=== PATIENT | female | born 1955 | race Caucasian/White ===

== ENCOUNTER → 2016-12-02 | Outpatient (CLI) | payer OTHER ==
[2016-12-02 09:14] LABS: MEAN CORPUSCULAR HEMOGLOBIN 30.1 pg (27.0-33.0); MEAN CORPUSCULAR HGB CONC 33.7 g/dl (32.0-36.5); MEAN CORPUSCULAR VOLUME 89.4 fl (80.0-96.0); RED CELL DISTRIBUTION WIDTH 12.5 % (11.5-14.5); WHITE BLOOD COUNT 5.6 K/mm3 (4.0-10.0)
[2016-12-02 09:52] LABS: ALBUMIN 3.8 GM/DL (3.2-5.2); ALBUMIN/GLOBULIN RATIO 1.12 (1.00-1.93); ALKALINE PHOSPHATASE 120 U/L (45-117); ALT/SGPT 39 U/L (12-78); ANION GAP 9 MEQ/L (8-16); AST/SGOT 26 U/L (15-37); BILIRUBIN,TOTAL 0.5 MG/DL (0.2-1.0); BLOOD UREA NITROGEN 12 MG/DL (7-18); CALCIUM LEVEL 8.8 MG/DL (8.8-10.2); CARBON DIOXIDE LEVEL 27 MEQ/L (21-32); CHLORIDE LEVEL 107 MEQ/L (98-107); CHOLESTEROL LEVEL 231 MG/DL (<200); CREATININE FOR GFR 0.99 MG/DL (0.55-1.02); GLOMERULAR FILTRATION RATE > 60.0 (>45); GLUCOSE, FASTING 90 MG/DL (80-110); POTASSIUM SERUM 4.4 MEQ/L (3.5-5.1); SODIUM LEVEL 143 MEQ/L (136-145); TOTAL PROTEIN 7.2 GM/DL (6.4-8.2); TRIGLYCERIDES LEVEL 183 MG/DL (<150)
== END ==
LOC: M WUC 08:24
PROVIDERS: ATTEND Family Medicine
DX: I10 Essential (primary) hypertension (principal); E03.9 Hypothyroidism, unspecified

== ENCOUNTER → 2017-03-14 | Outpatient (CLI) | payer OTHER ==
[~2017-03-14] MED LIST: LEVO88TA3 PO; PENT10CA PO; RANI150T PO; ZOLO50TA PO
[2017-03-14 11:20] LABS: MEAN CORPUSCULAR HEMOGLOBIN 30.4 pg (27.0-33.0); MEAN CORPUSCULAR HGB CONC 33.6 g/dl (32.0-36.5); MEAN CORPUSCULAR VOLUME 90.6 fl (80.0-96.0); RED CELL DISTRIBUTION WIDTH 12.9 % (11.5-14.5); WHITE BLOOD COUNT 6.6 K/mm3 (4.0-10.0)
[2017-03-14 12:11] LABS: ALBUMIN 3.8 GM/DL (3.2-5.2); ALBUMIN/GLOBULIN RATIO 1.09 (1.00-1.93); ALKALINE PHOSPHATASE 119 U/L (45-117); ALT/SGPT 31 U/L (12-78); ANION GAP 7 MEQ/L (8-16); AST/SGOT 20 U/L (15-37); BILIRUBIN,TOTAL 0.5 MG/DL (0.2-1.0); BLOOD UREA NITROGEN 16 MG/DL (7-18); CALCIUM LEVEL 8.8 MG/DL (8.8-10.2); CARBON DIOXIDE LEVEL 28 MEQ/L (21-32); CHLORIDE LEVEL 104 MEQ/L (98-107); CHOLESTEROL LEVEL 248 MG/DL (<200); CREATININE FOR GFR 0.88 MG/DL (0.55-1.02); GLOMERULAR FILTRATION RATE > 60.0 (>45); GLUCOSE, FASTING 84 MG/DL (80-110); POTASSIUM SERUM 4.5 MEQ/L (3.5-5.1); SODIUM LEVEL 139 MEQ/L (136-145); TOTAL PROTEIN 7.3 GM/DL (6.4-8.2); TRIGLYCERIDES LEVEL 174 MG/DL (<150)
[2017-03-14 12:20] LABS: INR 1.09
--- NOTE | 2017-03-14 20:18 | ECGEPIP ---
Stationary ECG Study [facility] Test Date: 2017-03-14 Pat Name: MELLY VALADEZ Department: Room: - Gender: F [employer]ast Concrete Ironworker: DARÍO : 1955 Requested By: Uriel Benson Order Number: [id number] Reading MD: Sivakumar Daniels Measurements Intervals [place] Rate: 61 P: 31 [place]: 180 QRS: 11 QRSD: 93 T: 29 QT: 422 QTc: 426 Interpretive Statements SINUS RHYTHM NO PRIOR Electronically Signed On 03-14-2017 20:18:29 EDT by Sivakumar Daniels
--- NOTE | 2017-03-15 01:54 | REP ---
Clinical: Preoperative testing. Technique: PA and lateral. Comparison: 01/01/2013. Findings: Subtle bibasilar atelectasis/infiltrates cannot be excluded and require correlation with physical examination and auscultation. No effusion. No pneumothorax. Mediastinum and cardiac silhouette are stable. Skeletal structures are intact. Airway is patent and midline. Impression: Cannot exclude bibasilar atelectasis/subtle infiltrate. Signed by Sae Jarquin MD 03/15/2017 01:46 A
== END ==
LOC: M LAB 10:27
PROVIDERS: ATTEND Family Medicine
DX: Z01.818 Encounter for other preprocedural examination (principal); E03.9 Hypothyroidism, unspecified

== ENCOUNTER → 2017-03-23 | Outpatient (CLI) | payer OTHER ==
--- NOTE | 2017-03-23 11:10 | REP ---
Clinical: Follow up pneumonia . Comparison: 03/14/2017 . Technique: PA and lateral. Findings: The mediastinum and cardiac silhouette are normal. The lung long are clear and without acute consolidation, effusion, or pneumothorax. Previously identified bibasilar infiltrates have resolved. The skeletal structures are intact and normal. Impression: 1. No acute cardiopulmonary process. 2. Previously noted bibasilar infiltrates have resolved. Signed by Sae Jarquin MD 03/23/2017 11:01 A
== END ==
LOC: M RAD 10:25
PROVIDERS: ATTEND Family Medicine
DX: J18.9 Pneumonia, unspecified organism (principal)

== ENCOUNTER 2017-05-17 10:10 | Inpatient (IN) | payer OTHER ==
--- NOTE | 2017-05-16 16:55 | HPE ---
DATE OF ADMISSION: 05/17/2017 CHIEF COMPLAINT: Cecal polyps. BRIEF HISTORY OF PRESENT ILLNESS: The patient is a 61-year-old female who presents for a family history of colon cancer. Her sister was diagnosed with rectal cancer. She had originally some urgency with bowel movements and had occasional bleeding from hemorrhoids, and thus a followup colonoscopy was performed. During that time, followup colonoscopy revealed a relative carpet of polyps within the cecum and she was referred on to [facility] for possible treatment of these colonic polyps. The patient had adenomatous polyps diagnosed on that area. PAST MEDICAL HISTORY: Her past medical history is significant for: 1. History of chronic rhinitis. 2. History of chronic cough. 3. History of (C) section and tubal ligation. 4. History of anxiety. 5. History of depression. 6. History of hepatitis. 7. History of hypothyroidism. 8. History of obesity. 9. History of interstitial cystitis. 10. History of tubal ligation. MEDICATIONS: Include: - Elmiron 100 mg two by mouth three times a day - Synthroid - ranitidine - sertraline PHYSICAL EXAMINATION: Reveals a 61-year-old female who looks stated. HEENT: Reveals an atraumatic, normocephalic head with extraocular movements intact. Pupils are equal and reactive to light. Sclerae nonicteric. Oropharynx clear without exudate or lesions. NECK: Supple without adenopathy. LUNGS: Clear to auscultation without crackles, wheezes or rhonchi. HEART: Regular without murmur. ABDOMEN: Soft, nontender, nondistended. No hepatosplenomegaly is appreciated. EXTREMITIES: Warm and well-perfused. IMPRESSION AND PLAN: The patient has an unresected polyp (adenomatous) of the cecum with recommendations to proceed with a right hemicolectomy. The risks as well as benefits have been discussed with her at length, those including but not limited to infection, bleeding, damage to surrounding structures including bowel, bladder, nerves, vessels, kidney, ureter, duodenum, liver, and the plan is for a laparoscopic approach. She will be given a mechanical as well as antibiotic bowel preparation and given IV antibiotics preoperatively. She will receive a Parkinson catheter perioperatively and plan on hospitalization/admission. She understands the risks as above and they do include possible open operative intervention as well as possible colostomy placement. She would like to proceed with this as scheduled on 05/17/2017.
[~2017-05-17] VITALS: Ht 172.7 cm; Wt 92.3 kg
[2017-05-17] VITALS (7 sets, daily range): BP systolic 111–130; BP diastolic 58–68; O2SAT 96
[2017-05-17] MEDS ORDERED: LR 1,000 ML IV ONE (10:30)
[2017-05-17] MEDS ORDERED: ERTAPENEM SODIUM 1 GM in NS MINI-BAG PLUS 50 ML IV ONE (11:00)
[2017-05-17] MEDS ORDERED: BUPIVACAINE/EPIN 0.25% 30 ML VIAL As Ordered ONE (12:10)
[2017-05-17] MEDS ORDERED: GLUCAGON FOR INJ 1 MG VIAL (J1610) As Ordered ONE (12:11)
[2017-05-17] MEDS ORDERED: BUPIVACAINE LIPOSOME/PF 1.3% 20 ML VIAL (13.3MG/ML)(EXPAREL) As Ordered ONE (12:11)
[2017-05-17] MEDS ORDERED: BUPIVACAINE HCL 0.25% 30 ML VIAL As Ordered ONE (12:11)
[2017-05-17] MEDS ORDERED: fentaNYL 250 MCG/5 ML INJECTION (J3010) As Ordered ONE (13:20)
[2017-05-17] MEDS ORDERED: MIDAZOLAM INJ 2 MG/2 ML VIAL (J2250) As Ordered ONE (13:20)
[2017-05-17] MEDS ORDERED: HYDROmorphone HCL 2 MG/ML 1ML VIAL (J1170) As Ordered ONE (13:21)
[2017-05-17] MEDS ORDERED: ROCURONIUM BROMIDE 50 MG/5 ML VIAL/SYRINGE As Ordered ONE (13:22)
[2017-05-17] MEDS ORDERED: GLYCOPYRROLATE INJ 0.2 MG/ML 2 ML VIAL As Ordered ONE (13:23)
[2017-05-17] MEDS ORDERED: LIDOCAINE 2% INJ 100 MG/5 ML SDV (FOR ANES.) As Ordered ONE (13:23)
[2017-05-17] MEDS ORDERED: ONDANSETRON 4MG/2ML VIAL (J2405) As Ordered ONE (13:23)
[2017-05-17] MEDS ORDERED: METOCLOPRAMIDE INJ 10MG/2ML VIAL (J2765) As Ordered ONE (13:23)
[2017-05-17] MEDS ORDERED: PROPOFOL 200 MG/20 ML VIAL As Ordered ONE (13:23)
[2017-05-17] MEDS ORDERED: NEOSTIGMINE 1MG/ML 5 ML SYRINGE (J2710) As Ordered ONE (13:23)
[2017-05-17] MEDS ORDERED: DESFLURANE 240 ML INHALANT As Ordered ONE (13:29)
[2017-05-17] MEDS ORDERED: KETOROLAC 60 MG/2 ML VIAL (J1885) As Ordered ONE (14:13)
[2017-05-17] MEDS ORDERED: NS 1,000 ML IV SCH (14:39)
[2017-05-17] MEDS: LR 1,000 ML IV SCH ×3 (14:39→22:39)
[2017-05-17] MEDS ORDERED: NALBUPHINE HCL 10 MG/ML AMP (J2300) IV PRN (14:45)
[2017-05-17] MEDS ORDERED: METOCLOPRAMIDE INJ 10MG/2ML VIAL (J2765) IV PRN ×2 (14:45→15:15)
[2017-05-17] MEDS ORDERED: EPIDURAL/PCA KEYS XX PRN (14:45)
[2017-05-17] MEDS ORDERED: NALOXONE INJ 0.4 MG/1 ML VIAL (J2310) IV PRN (14:45)
[2017-05-17] MEDS ORDERED: diphenhydrAMINE INJ 50MG/ML VIAL (J1200) IV PRN (14:45)
[2017-05-17] MEDS ORDERED: MORPHINE 1MG/ML IN 0.9% NACL 100ML IV BAG IV PRN (14:45)
[2017-05-17] MEDS ORDERED: IPRATROPIUM 0.5MG/ALBUTEROL 2.5MG INH SOL UD 3ML (DUONEB)(J7620) NEB PRN (14:45)
[2017-05-17] MEDS ORDERED: ONDANSETRON 4MG/2ML VIAL (J2405) IV PRN ×3 (14:45→15:15)
[2017-05-17] MEDS ORDERED: PROMETHAZINE INJ 25 MG/ML VIAL (J2550) IV PRN (14:45)
[2017-05-17] MEDS ORDERED: fentaNYL 100 MCG/2 ML INJECTION (J3010) As Ordered ONE (15:01)
[2017-05-17] MEDS: fentaNYL 100 MCG/2 ML INJECTION (J3010) IV SCH ×4 (15:02→15:20)
[2017-05-17] MEDS ORDERED: fentaNYL 100 MCG/2 ML INJECTION (J3010) IV PRN (15:15)
[2017-05-17] MEDS ORDERED: PERCOCET 5MG/325MG TAB PO PRN (15:15)
[2017-05-17] MEDS ORDERED: HYDROmorphone HCL 1 MG/ML SYRINGE (J1170) IV PRN (15:15)
[2017-05-17] MEDS ORDERED: LR 1,000 ML IV SCH (15:15)
[2017-05-17] MEDS: PENTOSAN POLYSULFATE SODIUM 100 MG CAP (ELMIRON) PO SCH (20:43)
[2017-05-17] MEDS: IPRATROPIUM 0.5MG/ALBUTEROL 2.5MG INH SOL UD 3ML (DUONEB)(J7620) NEB SCH (21:12)
[2017-05-18] VITALS (7 sets, daily range): BP systolic 98–131; BP diastolic 50–79; O2SAT 96
[2017-05-18] MEDS: IPRATROPIUM 0.5MG/ALBUTEROL 2.5MG INH SOL UD 3ML (DUONEB)(J7620) NEB SCH ×4 (02:00→20:10)
[2017-05-18] MEDS: LEVOTHYROXINE 88MCG TABLET (0.088 MG) PO SCH (05:27)
[2017-05-18] MEDS: LR 1,000 ML IV SCH ×2 (06:39→07:13)
[2017-05-18 07:20] LABS: MEAN CORPUSCULAR HEMOGLOBIN 30.7 pg (27.0-33.0); MEAN CORPUSCULAR HGB CONC 32.4 g/dl (32.0-36.5); RED CELL DISTRIBUTION WIDTH 13.5 % (11.5-14.5); WHITE BLOOD COUNT 8.2 K/mm3 (4.0-10.0)
[2017-05-18 07:43] LABS: ANION GAP 4 MEQ/L (8-16); BLOOD UREA NITROGEN 11 MG/DL (7-18); CALCIUM LEVEL 8.2 MG/DL (8.8-10.2); CARBON DIOXIDE LEVEL 29 MEQ/L (21-32); CHLORIDE LEVEL 105 MEQ/L (98-107); CREATININE FOR GFR 0.91 MG/DL (0.55-1.02); GLOMERULAR FILTRATION RATE > 60.0 (>45); GLUCOSE, FASTING 90 MG/DL (80-110); POTASSIUM SERUM 4.2 MEQ/L (3.5-5.1); SODIUM LEVEL 138 MEQ/L (136-145)
[2017-05-18] MEDS: SERTRALINE HCL 50 MG TAB PO SCH (09:00)
[2017-05-18] MEDS: PANTOPRAZOLE 40MG INJ (PROTONIX) (C9113) IV SCH (09:00)
[2017-05-18] MEDS: PENTOSAN POLYSULFATE SODIUM 100 MG CAP (ELMIRON) PO SCH ×3 (09:01→21:28)
[2017-05-18] MEDS: KETOROLAC 30 MG/ML VIAL (J1885) IV PRN ×3 (10:40→23:11)
[2017-05-18] MEDS ORDERED: ERTAPENEM SODIUM 1 GM in NS MINI-BAG PLUS 50 ML IV ONE (12:00)
--- NOTE | 2017-05-18 18:30 | RO ---
DATE OF PROCEDURE: 05/17/2017 PREOPERATIVE DIAGNOSIS: Cecal polyp. POSTOPERATIVE DIAGNOSIS: Cecal polyp. PROCEDURE: Laparoscopic right colectomy. SURGEON: Dr. Barrett Morris HIV/AIDS CARE NURSE: Dr. Wyatt. Dr. Wyatt assisted with retraction, exposure and assistance with the anastomosis. ESTIMATED BLOOD LOSS: Minimal. FLUIDS: Crystalloid. BRIEF PROCEDURE SUMMARY: The patient was brought to the operating room was given general anesthesia. After adequate anesthesia and preoperative antibiotics were given the patient was prepped and draped in the usual sterile fashion. Next, the supraumbilical incision was made with skin knife. Blunt dissection was carried down to fascia. Fascia was grasped with David clamps, elevated and a Veress needle placed into the abdominal cavity insufflated to 15 mm pressure. A dilating 10 mm trocar was placed at this time and under direct visualization a suprapubic and left lower quadrant 5 mm trocars were placed. Next, a epigastric 5 mm trocar was placed and the patient was placed in Trendelenburg left side down position. The cecum was seen, evaluated and the white line of Toldt was taken down with harmonic scalpel. This continued all across to where the mesentery was able to be mobilized off Gerota's and medially to the duodenum. This continued across the hepatic flexure and around the hepatic flexure where this was able to be mobilized off the duodenum and even pancreas was well visualized in this area. Once the vessels were identified quite nicely in this area, the colon was a additionally mobilized to see if this could be mobilized medially with some blunt dissection. It was easily performed in this area and then the mesentery of the small bowel that was adherent in the pelvic sidewall was taken down with harmonic scalpel as well. Once this fold of peritoneum was taken down I felt that the cecum could be delivered through the umbilicus without undue tension. A midline incision was created and the terminal ileum was transected with a JAIRO stapler. The hepatic flexure was transected with the JAIRO stapler and a [id number] anastomosis was created after the vessels were taken with echelon vascular load. The enterotomy then was closed with a JAIRO 75 blue load and the crotch of the anastomosis as well as the top portion of a anastomosis was reinforced with some interrupted 3-0 Vicryl. Next, this was returned to the abdominal cavity irrigated until clear and the midline was closed with a running 0 Vicryl. The midline incision was copiously irrigated until clear and then closed with megan. All incisions were closed with megan. Dry sterile dressing was applied. The patient was awakened, extubated, brought to the recovery room awake, alert, hemodynamically stable. Sponge, needle counts correct times two.
[2017-05-19] VITALS: BP_SYST 116; BP_SYST 136; BP_DIAS 55; BP_DIAS 62
[2017-05-19] MEDS: IPRATROPIUM 0.5MG/ALBUTEROL 2.5MG INH SOL UD 3ML (DUONEB)(J7620) NEB SCH ×4 (02:00→20:00)
[2017-05-19 04:00] VITALS: BP 119/74
[2017-05-19] MEDS: LEVOTHYROXINE 88MCG TABLET (0.088 MG) PO SCH (05:54)
[2017-05-19] MEDS: KETOROLAC 30 MG/ML VIAL (J1885) IV PRN ×3 (05:55→20:36)
[2017-05-19 07:06] LABS: MEAN CORPUSCULAR HEMOGLOBIN 30.1 pg (27.0-33.0); MEAN CORPUSCULAR HGB CONC 32.4 g/dl (32.0-36.5); MEAN CORPUSCULAR VOLUME 92.8 fl (80.0-96.0)
[2017-05-19 07:19] LABS: ANION GAP 5 MEQ/L (8-16); BLOOD UREA NITROGEN 8 MG/DL (7-18); CALCIUM LEVEL 8.4 MG/DL (8.8-10.2); CARBON DIOXIDE LEVEL 30 MEQ/L (21-32); CHLORIDE LEVEL 105 MEQ/L (98-107); CREATININE FOR GFR 0.78 MG/DL (0.55-1.02); GLOMERULAR FILTRATION RATE > 60.0 (>45); GLUCOSE, FASTING 95 MG/DL (80-110); POTASSIUM SERUM 3.9 MEQ/L (3.5-5.1); SODIUM LEVEL 140 MEQ/L (136-145)
[2017-05-19 08:00] VITALS: BP 125/58
[2017-05-19] MEDS: SERTRALINE HCL 50 MG TAB PO SCH (09:08)
[2017-05-19] MEDS: PENTOSAN POLYSULFATE SODIUM 100 MG CAP (ELMIRON) PO SCH ×3 (09:08→20:36)
[2017-05-19] MEDS ORDERED: NORCO, ANEXSIA 5/325MG TABLET (HYDROcodone/ACETAMINOPHEN) PO PRN (10:45)
[2017-05-19] MEDS: PANTOPRAZOLE 40MG INJ (PROTONIX) (C9113) IV SCH (11:06)
[2017-05-19 12:00] VITALS: BP 114/64
[2017-05-19 16:00] VITALS: BP 117/68
[2017-05-19 20:00] VITALS: BP 124/70
[2017-05-20] VITALS: BP 135/67
[2017-05-20] MEDS: IPRATROPIUM 0.5MG/ALBUTEROL 2.5MG INH SOL UD 3ML (DUONEB)(J7620) NEB SCH ×2 (02:00→07:40)
[2017-05-20 04:00] VITALS: BP 127/70
[2017-05-20] MEDS: LEVOTHYROXINE 88MCG TABLET (0.088 MG) PO SCH (06:50)
[2017-05-20 07:35] LABS: MEAN CORPUSCULAR HGB CONC 33.6 g/dl (32.0-36.5); MEAN CORPUSCULAR VOLUME 92.3 fl (80.0-96.0); RED CELL DISTRIBUTION WIDTH 12.9 % (11.5-14.5); WHITE BLOOD COUNT 7.4 K/mm3 (4.0-10.0)
[2017-05-20 07:58] LABS: ANION GAP 6 MEQ/L (8-16); BLOOD UREA NITROGEN 5 MG/DL (7-18); CALCIUM LEVEL 8.8 MG/DL (8.8-10.2); CARBON DIOXIDE LEVEL 30 MEQ/L (21-32); CHLORIDE LEVEL 105 MEQ/L (98-107); CREATININE FOR GFR 0.76 MG/DL (0.55-1.02); GLOMERULAR FILTRATION RATE > 60.0 (>45); GLUCOSE, FASTING 89 MG/DL (80-110); POTASSIUM SERUM 3.6 MEQ/L (3.5-5.1); SODIUM LEVEL 141 MEQ/L (136-145)
[2017-05-20 08:00] VITALS: BP 131/72
[2017-05-20] MEDS: PANTOPRAZOLE 40MG INJ (PROTONIX) (C9113) IV SCH (11:12)
[2017-05-20] MEDS: PENTOSAN POLYSULFATE SODIUM 100 MG CAP (ELMIRON) PO SCH (11:13)
[2017-05-20] MEDS: SERTRALINE HCL 50 MG TAB PO SCH (11:13)
[2017-05-20 12:00] VITALS: BP 111/75
--- NOTE | 2017-05-24 23:31 | DSES ---
DATE OF ADMISSION: 05/17/2017 DATE OF DISCHARGE: 05/20/2017 PRINCIPAL DIAGNOSIS: Cecal polyp. ASSOCIATED DIAGNOSES: History of depression. History of hepatitis. History of hypothyroidism. History of obesity. history of interstitial cystitis. History of tubal ligation. History of chronic rhinitis. History of chronic cough. History of section and tubal ligation. PROCEDURES PERFORMED: Right colectomy on 05/17/2017. BRIEF HISTORY OF PRESENT ILLNESS: The patient is a 61-year-old female who presents with a family history of colon cancer. Her sister was diagnosed with rectal cancer, and she underwent a colonoscopy for some urgency with bowel movements, some bleeding hemorrhoids and at the time of the colonoscopy, there were multiple polyps within the cecum. She was referred to [place] for treatment of this; however, the recommendation after repeat colonoscopy in [place] was to proceed with surgical resection. HOSPITAL COURSE SUMMARY: The patient underwent laparoscopic right colectomy. The patient did well postoperatively. She started to have gastrointestinal (GI) function relatively soon, was increasing her activity, was ambulating well and was started on a clear liquid diet, advanced to a regular diet prior to discharge. Eventually she was discharged to home on 05/20/2017, tolerating a regular diet with incisions which were clean, dry, healing without any erythema, drainage or discharge. She was discharged on her usual medications, which include Synthroid, Elmiron, ranitidine and Zoloft. She was to follow up next week for staple removal and in [address] Morris for reevaluation.
[2017-06-24] MEDS ORDERED: LEVA1TAB2 PO (18:57)
== END 2017-05-20 14:55 | disposition home or self-care (01) | DRG 331 ==
LOC: M OR 10:10 → M PED 16:17
PROVIDERS: ADMIT Surgery; ATTEND Surgery
PROC: 0DTJ4ZZ Resection of Appendix, Percutaneous Endoscopic Approach (ICD-10-PCS; 2017-05-17)
PROC: 0DTF4ZZ Resection of Right Large Intestine, Percutaneous Endoscopic Approach (ICD-10-PCS; principal; 2017-05-17 11:45)
DX: D12.0 Benign neoplasm of cecum (principal); Z98.51 Tubal ligation status; Z80.0 Family history of malignant neoplasm of digestive organs; E03.9 Hypothyroidism, unspecified; F41.9 Anxiety disorder, unspecified; F32.9 Major depressive disorder, single episode, unspecified; J31.0 Chronic rhinitis; Z79.899 Other long term (current) drug therapy

== ENCOUNTER → 2017-06-29 | Outpatient (CLI) | payer OTHER ==
[~2017-06-29] MED LIST changes: +GASTROGRAFIN SOLUTION 30ML (Q9963) As Ordered ONE; +ISOVUE-370 76% 100ML VIAL (Q9967) As Ordered ONE; +LEVA1TAB2 PO
--- NOTE | 2017-06-29 18:46 | REP ---
CT abdomen pelvis without and with IV contrast: With oral contrast: History: Periumbilical pain. Post bowel resection. Comparison CT study 01/13/2009. CT contrast dose: 100 ml of Isovue [address] findings: Preliminary scientific research associate view shows a dextroconvex curvature in the lumbar spine. The lung bases are clear. There is a small nodular opacity in the right middle lobe which is unchanged from the 2009 prior study. In addition, there is a noncalcified pulmonary nodule in the right lower lobe 4 mm in greatest diameter. This projects on image #9 of 39 in series 304 of today's study. This was not present previously. There is a geographic pattern of fatty infiltration seen in the liver with some areas of fat sparing. The gallbladder is unremarkable. No adrenal lesion is seen on either side. The spleen is unremarkable. No pancreatic abnormality is observed. Kidneys enhance symmetrically and are morphologically intact. There are surgical clips and some postoperative fibrosis adjacent to the right colon status post prior right colon resection. There is left colonic diverticulosis most pronounced in the sigmoid colon. There is no CT evidence of diverticulitis. No uterine or ovarian abnormality is seen. Urinary bladder is intact. No abdominal wall defect is seen. There is some postoperative fibrosis in the periumbilical region involving the anterior abdominal wall. No other abnormality is seen. Degenerative disc changes are noted at L5-S1 and to a lesser extent L3-4 and L4-5. Impression: 1. Fatty infiltration of the liver. 2. Postoperative changes at the right colon. 3. Postoperative fibrosis changes in the anterior abdominal wall in the periumbilical region. No other abnormality. Signed by Patel Tran MD 06/30/2017 08:53 A
== END ==
LOC: M RAD 13:52
PROVIDERS: ATTEND Surgery
DX: R10.9 Unspecified abdominal pain (principal)

== ENCOUNTER → 2017-12-20 | Outpatient (REF) | payer OTHER ==
[2017-12-20 19:06] LABS: BACTERIA, URINE SMALL AMOUNT; HYALINE CAST, URINE NONE SEEN /lpf (0-1); MICROSCOPIC EXAM PERFORMED; MUCUS, URINE SMALL AMOUNT (NEGATIVE); RBC, URINE 0-1 /hpf (0-3); SQUAMOUS EPITHELIAL CELL URINE SMALL AMOUNT /hpf (SMALL AMT); TRANSITIONAL EPI CELLS, URINE SMALL AMOUNT /hpf
== END ==
LOC: M SMT 17:00
DX: N30.10 Interstitial cystitis (chronic) without hematuria (principal)
CPT/HCPCS: 81015

== ENCOUNTER → 2018-01-19 | Outpatient (CLI) | payer OTHER | LOC: M RAD 12:10 | DX: N30.10 Interstitial cystitis (chronic) without hematuria (principal) ==

== ENCOUNTER → 2018-05-22 | Outpatient (CLI) | payer OTHER ==
[2018-05-22 09:48] LABS: HEMATOCRIT 44.2 % (36.0-47.0); HEMOGLOBIN 14.4 g/dl (12.0-15.5); MEAN CORPUSCULAR HEMOGLOBIN 29.4 pg (27.0-33.0); MEAN CORPUSCULAR HGB CONC 32.6 g/dl (32.0-36.5); MEAN CORPUSCULAR VOLUME 90.2 fl (80.0-96.0); PLATELET COUNT, AUTOMATED 284 10^3/uL (150-450); RED CELL DISTRIBUTION WIDTH 12.9 % (11.5-14.5); WHITE BLOOD COUNT 6.7 10^3/uL (4.0-10.0)
[2018-05-22 10:15] LABS: ALBUMIN 3.6 GM/DL (3.2-5.2); ALKALINE PHOSPHATASE 123 U/L (45-117); ALT/SGPT 41 U/L (12-78); ANION GAP 7 MEQ/L (8-16); AST/SGOT 24 U/L (7-37); BILIRUBIN,TOTAL 0.4 MG/DL (0.2-1.0); BLOOD UREA NITROGEN 18 MG/DL (7-18); CALCIUM LEVEL 8.8 MG/DL (8.8-10.2); CARBON DIOXIDE LEVEL 29 MEQ/L (21-32); CHLORIDE LEVEL 106 MEQ/L (98-107); CHOLESTEROL LEVEL 233 MG/DL (<200); CHOLESTEROL RISK RATIO 5.974 (<5); CREATININE FOR GFR 0.94 MG/DL (0.55-1.30); GLOMERULAR FILTRATION RATE > 60.0 (>45); GLUCOSE, FASTING 92 MG/DL (70-100); HDL CHOLESTEROL 39 MG/DL (>40); IRON (FE) 64 UG/DL (50-170); LDL CHOLESTEROL 133.8 MG/DL (<100); NON-HDL-C 194 MG/DL; POTASSIUM SERUM 4.6 MEQ/L (3.5-5.1); SODIUM LEVEL 142 MEQ/L (136-145); TOTAL IRON BINDING CAPACITY 337 UG/DL (250-450); TOTAL PROTEIN 7.2 GM/DL (6.4-8.2); TRIGLYCERIDES LEVEL 301 MG/DL (<150)
[2018-05-22 10:35] LABS: ESTIMATED AVERAGE GLUCOSE 123 MG/DL (60-110); HEMOGLOBIN A1c 5.9 %
== END ==
LOC: M LAB 09:06
DX: R53.83 Other fatigue (principal); I51.7 Cardiomegaly; E03.9 Hypothyroidism, unspecified; D64.9 Anemia, unspecified
CPT/HCPCS: 71046

== ENCOUNTER 2018-07-20 12:52 | Day surgery (SDC) | payer OTHER ==
[~2018-07-20 12:52] MED LIST changes: -GASTROGRAFIN SOLUTION 30ML (Q9963) As Ordered ONE; -ISOVUE-370 76% 100ML VIAL (Q9967) As Ordered ONE; -LEVA1TAB2 PO; -LEVO88TA3 PO; +LIDOCAINE 2% INJ 100 MG/5 ML SDV (FOR ANES.) As Ordered; -PENT10CA PO; +PROPOFOL 200 MG/20 ML VIAL As Ordered; -RANI150T PO; -ZOLO50TA PO
[2018-07-20] MEDS: NS 1,000 ML IV (13:00)
== END 2018-07-20 14:54 | disposition home or self-care (01) ==
LOC: M OPP 12:52
DX: Z12.11 Encounter for screening for malignant neoplasm of colon (principal); Z80.0 Family history of malignant neoplasm of digestive organs; Z86.010 Personal history of colon polyps; K57.30 Diverticulosis of large intestine without perforation or abscess without bleeding; E03.9 Hypothyroidism, unspecified; K21.9 Gastro-esophageal reflux disease without esophagitis; R12 Heartburn; Z86.19 Personal history of other infectious and parasitic diseases; F41.9 Anxiety disorder, unspecified; F32.9 Major depressive disorder, single episode, unspecified; N30.10 Interstitial cystitis (chronic) without hematuria; Z87.19 Personal history of other diseases of the digestive system; Z79.899 Other long term (current) drug therapy
CPT/HCPCS: 45378

== ENCOUNTER → 2018-11-25 | Outpatient (CLI) | payer OTHER ==
[~2018-11-25] MED LIST changes: +DEXI30CA2 PO; +LEVA1TAB2 PO; +LEVO88TA3 PO; -LIDOCAINE 2% INJ 100 MG/5 ML SDV (FOR ANES.) As Ordered; +PENT10CA PO; -PROPOFOL 200 MG/20 ML VIAL As Ordered; +RANI150T PO; +ZOLO50TA PO
--- NOTE | 2018-11-26 08:46 | REP ---
MRI RIGHT SHOULDER WITHOUT CONTRAST: 11/25/2018. Clinical history: Right shoulder pain, no rotator cuff tear, calcific tendonitis or other. Technique: Sagittal fat suppressed T2 with coronal T1 and fat suppressed T2 along with axial 3-D WATS gradient echo and fat suppressed T2. Comparison: X-ray 01/01/2013. Findings: AC joint shows fairly prominent spurs at the inferior aspect of the clavicle and acromion indenting musculotendinous junction rotator cuff is additional prominent spurring at the peripheral margin of the acromion and downward sloping acromion. There is small volume of subacromial bursal fluid and trace subdeltoid bursal fluid. There is extensive thickening of the supraspinatus tendon just past the peripheral acromial spur and marked abnormal T2 hyperintense signal throughout the course of that tendon appear to be some partial tears in the tendon cystic change extending into the infraspinatus tendon and muscle. The coracoclavicular and coracohumeral ligaments are intact. The sagittal images there is some abnormal signal at the insertional footprint of the posterior margin supraspinatus superior margin of the infraspinatus tendon on the greater tuberosity of the humeral head and some adjacent somewhat output bursal fluid. Biceps tendon is seated in its groove and the intra-articular course of the of that biceps shows some thickening of the tendon but no definite tear of the biceps or biceps labral anchor. There is no significant glenohumeral joint effusion. I cannot confirm any a labral tear. Some degenerative changes at the inferior margin of the glenohumeral joint. A few tiny subchondral cysts noted posteriorly in the greater tuberosity humeral head likely related to posterior impingement. The subscapularis shows some thickening increased signal near its insertion but no full-thickness tear, retraction and no atrophy of the muscle. The supraspinatus muscle. Infraspinatus and teres minor muscles also show no tear. There is no paralabral cyst. I see no fluid in the subcoracoid bursa. On the axial and coronal T2 as focal dark signal in the supraspinatus tendon region may reflect some calcific tendinopathy/tendonitis. Impression: 1. 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 There is significant abnormal thickening of the supraspinatus tendon with marked abnormal T2 signal with very poor tendon quality and some partial tears. I do not see a complete tear with retraction of the tendon. There may be some communication to the subdeltoid bursa from intrasubstance tears of partial-thickness. Some dark signal foci in the region of the supraspinatus tendon on the T2 and axial and sagittal images raise question of calcific tendinopathy/tendonitis. 2. Minor degenerative changes inferior aspect glenohumeral joint. No glenohumeral joint effusion or loose body. No definite labral tear. 3. Biceps tendon sits well in its groove. There is some mild thickening of the intra-articular course of the tendon but no definite tear and the biceps labral anchor intact. Subscapularis tendon with some thickening and tendinopathy but no tear and the muscle was intact. 4. Abnormal signal in the insertion of the posterior fibers of the supraspinatus and superior fibers of the infraspinatus over the greater tuberosity humeral head and some fluid infiltration of the tendon and musculotendinous junction. No muscle atrophy there. No avulsion or retraction of those tendons. 5. Coracoclavicular coracohumeral ligaments are intact. Electronically Signed by Johnathan Taylor MD 11/26/2018 09:58 A
--- NOTE | 2018-11-26 09:17 | REP ---
MRI CERVICAL SPINE WITHOUT CONTRAST: 11/25/2018. Clinical history: Neck pain, radiculopathy. Comparison: Shoulder x-ray 01/01/2013, CT neck soft tissue and bone windows 07/31/2008. Technique: Sagittal T1, T2 and STIR images with axial T1 and T2 sequences. Findings: Normal cervical lordosis slightly reduced as on prior CT. A few millimeters of retrolisthesis of C5 on 6 unchanged. There is spondylosis with narrowing of the C5-6 disc space. The other disc space heights are better preserved but all discs showing loss of water signal. No compression deformity or marrow signal abnormality in the vertebral bodies. Dens intact. Cervical cord shows no intrinsic signal abnormality, syrinx, atrophy or mass craniocervical junction shows ample subarachnoid space and no cerebellar tonsillar ectopia. At C2-3 there is no disc bulge herniation and no spinal or foraminal stenosis. At C3-4 there is no significant disc bulge herniation. The central canal shows adequate diameter of the right foramen is ample. The left foramen shows encroachment due to combined factors but no nerve root compression. At C4-5 no significant disc bulge herniation and no spinal or foraminal stenosis. At C5-6 posterior ridging and associated broad-based disc bulge flattening the ventral thecal sac and ventral cord surface is obliterating most of the subarachnoid space at this level with AP canal diameter only 8 mm representing a moderate stenosis. Only slight flattening of the cord with minimal compression overall however the foramina show encroachment bilaterally right greater than left. At C6-7 there is posterior broad-based disc bulge with right paracentral disc protrusion. This abuts and flattens the ventral aspect of the cord on the right into the foramen. This is causing some mild central canal stenosis but without cord compression. Foramina on the left is adequate on the right is stenotic due to combined factors. At C7-T1 mild broad-based disc bulge with central canal and foramina are adequate. Impression: 1. Cervical spondylosis most severe at C5-6 with central canal stenosis, mild cord compression or flattening the ventral cord at that level and obliteration of the subarachnoid space. This does not cause tight stenosis. Foramina show mild encroachment bilaterally. 2. At C6-7 posterior broad-based disc bulge with right paracentral disc protrusion flattening ventral cord surface extending into the foramen causing mild central canal stenosis with the right foraminal encroachment wall left foramen was adequate. 3. Minimal degenerative changes at other levels without significant central canal stenosis. The left foramen at C3-4 shows some encroachment due to combined factors. 4. No syrinx, atrophy, cord lesion or other acute finding in the neural canal. 5. A few millimeters retrolisthesis of C5 on 6 unchanged from multiple prior studies. There is diffuse spondylosis greatest at C5-6. Electronically Signed by Johnathan Taylor MD 11/26/2018 09:58 A
== END ==
LOC: M RAD 12:01
PROVIDERS: ATTEND Orthopaedic Surgery Sports Medicine
DX: M54.2 Cervicalgia (principal); M25.511 Pain in right shoulder

== ENCOUNTER 2019-04-19 09:42 | Emergency (ER) | payer OTHER ==
[~2019-04-19] VITALS: Ht 170.2 cm; Wt 93.0 kg
[2019-04-19] MEDS ORDERED: LEVO100T5 (09:52)
[2019-04-19] MEDS ORDERED: ASPIRIN 81 MG CHEW TABLET PO ONE (10:15)
--- NOTE | 2019-04-19 10:38 | REP ---
Chest two views HISTORY: Chest pain Comparison: 05/22/2018 The lungs are clear. The heart is normal in size. The pulmonary vasculature is normal in appearance. The bony structure is intact. IMPRESSION: No acute disease. Electronically Signed by Erickson Balderrama MD 04/19/2019 10:29 A
[2019-04-19 10:39] LABS: BASO # 0.1 10^3/uL (0.0-0.2); BASO % 0.6 % (0.0-1.0); EOS # 0.4 10^3/uL (0.0-0.50); EOS % 3.2 % (0.0-3.0); HEMATOCRIT 45.1 % (36.0-47.0); HEMOGLOBIN 14.6 g/dl (12.0-15.5); LYMPH # 3.4 10^3/uL (1.5-4.5); LYMPH % 31.2 % (24.0-44.0); MEAN CORPUSCULAR HEMOGLOBIN 29.3 pg (27.0-33.0); MEAN CORPUSCULAR HGB CONC 32.4 g/dl (32.0-36.5); MEAN CORPUSCULAR VOLUME 90.6 fl (80.0-96.0); MONO # 1.2 10^3/uL (0.0-0.8); NEUTROPHILS # 5.7 10^3/uL (1.8-7.7); NEUTROPHILS % 52.5 % (36.0-66.0); PLATELET COUNT, AUTOMATED 286 10^3/uL (150-450); RED BLOOD COUNT 4.98 10^6/uL (4.00-5.40); WHITE BLOOD COUNT 10.9 10^3/uL (4.0-10.0)
--- NOTE | 2019-04-19 11:03 | REP ---
Bilateral lower extremity Duplex Doppler venous ultrasound: Real time compression and duplex Doppler interrogation of the bilateral lower extremity deep venous system is performed. Bilaterally, the common femoral, superficial femoral and popliteal veins are fully compressible with transducer pressure and demonstrate normal spontaneous and phasic flow, without evidence of deep venous thrombosis. Impression: No evidence of deep venous thrombosis of the bilateral lower extremity femoral popliteal venous system. Electronically Signed by Dillon Humphrey MD 04/19/2019 10:54 A
[2019-04-19 11:11] LABS: INR 0.98; PROTHROMBIN TIME 13.1 SECONDS (12.1-14.4)
[2019-04-19 11:18] LABS: ALBUMIN 3.2 GM/DL (3.2-5.2); ALT/SGPT 35 U/L (12-78); BILIRUBIN,DIRECT < 0.1 MG/DL (0.0-0.2); BILIRUBIN,TOTAL 0.5 MG/DL (0.2-1.0); BLOOD UREA NITROGEN 21 MG/DL (7-18); CALCIUM LEVEL 8.2 MG/DL (8.8-10.2); CARBON DIOXIDE LEVEL 27 MEQ/L (21-32); CHLORIDE LEVEL 105 MEQ/L (98-107); CK-MB VALUE MASS 1.5 NG/ML (<3.6); CPK CREATINE PHOSPHOKINASE 57 U/L (26-192); FREE T4 1.07 NG/DL (0.76-1.46); GLOMERULAR FILTRATION RATE 59.8 (>45); GLUCOSE, FASTING 81 MG/DL (70-100); LIPASE 161 U/L (73-393); MB/CK RELATIVE INDEX 2.63 (< OR =4); SODIUM LEVEL 139 MEQ/L (136-145); TOTAL PROTEIN 7.1 GM/DL (6.4-8.2); TROPONIN I < 0.02 NG/ML (< 0.10)
[2019-04-19] MEDS ORDERED: ISOVUE-370 76% 100ML VIAL (Q9967) As Ordered ONE (12:30)
--- NOTE | 2019-04-19 13:34 | REP ---
CT ANGIOGRAM CHEST: TECHNIQUE: Axial contrast enhanced images from the thoracic inlet to the upper abdomen using 100 mL Isovue 370 intravenous contrast material with multiplanar reformations. There is no CT evidence of pulmonary embolism. There is on thoracic aortic aneurysm or dissection. There are mild atherosclerotic calcifications of the thoracic aorta. The heart is normal in size. There is no pleural or pericardial effusion. There is no mediastinal, hilar, or chest wall lymphadenopathy. There is thickening along the right minor fissure. There is mild patchy bibasilar atelectasis/infiltrate right greater than left in the lower lobes. There are degenerative changes of the spine. IMPRESSION: No CT evidence of pulmonary embolism or aortic dissection. Mild patchy opacity in the lower lobes bilaterally, right greater than left . likely represents atelectasis, but some degree of infiltrate cannot be excluded. Electronically Signed by Dillon Humphrey MD 04/19/2019 04:43 P
[2019-04-19 13:51] VITALS: BP 126/78
--- NOTE | 2019-04-20 08:21 | ED PDOC ---
Post-Departure Follow-Up dr mi faxed formal report of cta chest for fu Brie Rivera MD Apr 20, 2019 08:21
--- NOTE | 2019-04-20 13:12 | ECGEPIP ---
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
== END 2019-04-19 13:56 | disposition home or self-care (01) ==
LOC: M ED 09:42
DX: R07.9 Chest pain, unspecified (principal); R11.0 Nausea; E07.9 Disorder of thyroid, unspecified; N30.10 Interstitial cystitis (chronic) without hematuria; Z79.899 Other long term (current) drug therapy; Z87.891 Personal history of nicotine dependence
CPT/HCPCS: 36415; 71046; 71275; 80048; 80076; 82550; 82553; 83690; 84439; 84443; 84484; 85025; 85610; 85730; 93005; 93041; 93970; 94760; 99285; Q9967

== ENCOUNTER → 2019-12-05 | Outpatient (CLI) | payer OTHER ==
[~2019-12-05] MED LIST changes: +LEVO100T5
--- NOTE | 2019-12-06 03:30 | REP ---
Clinical: Left carotid bruit. Technique: Humphrey scale and color Doppler evaluation using linear high frequency transducer Findings: Two-dimensional humphrey scale and color images demonstrate normal arterial lumen with laminar flow and no appreciable narrowing. Color Doppler interrogation demonstrates normal arterial wave patterns and velocities with no significant spectral broadening. Normal flow direction is appreciated in the bilateral vertebral arteries. RIGHT (cm/s) LEFT (cm/s) ICA peak systolic velocity 75.6 73.9 ICA diastolic velocity 29.5 27.4 ECA peak systolic velocity 76.4 76.4 CCA peak systolic velocity 90.1 102.0 ICA/CCA ratio 0.8 0.7 Impression: No hemodynamically significant areas of narrowing or stenosis appreciated. Based on set standards narrowing falls within the normal range. Electronically Signed by Sae Jarquin MD 12/06/2019 03:21 A
--- NOTE | 2019-12-07 00:47 | ECGEPIP ---
[facility] Test Date: 2019-12-05 Pat Name: MELLY VALADEZ Department: Room: - Gender: Female Multiple Coil Winder: YUMIKO : 1955 Requested By: Uriel Benson Order Number: [id number] Reading MD: Keny Selby Measurements Intervals [place] Rate: 59 P: 42 [place]: 179 QRS: 10 QRSD: 90 T: 21 QT: 439 QTc: 437 Interpretive Statements SINUS BRADYCARDIA COMPARED TO THE LAST 4 TRACINGS IN THE SYSTEM, NO SIGNIFICANT CHANGES BUT NOW SLOWER HEART RATE Electronically Signed on 12-07-2019 0:47:09 EST by Keny Selby
== END ==
LOC: M RAD 11:34
PROVIDERS: ATTEND Family Medicine
DX: R09.89 Other specified symptoms and signs involving the circulatory and respiratory systems (principal); I20.9 Angina pectoris, unspecified

== ENCOUNTER → 2020-05-14 | Outpatient (REF) | payer OTHER ==
[2020-05-14 13:31] LABS: HEPATITIS A ANTIBODY IGM NEGATIVE (NEGATIVE); HEPATITIS B CORE ANTIBODY IGM NEGATIVE (NEGATIVE); HEPATITIS B SURFACE ANTIGEN NEGATIVE (NEGATIVE); HEPATITIS C VIRUS ABY INDEX 0.2 INDEX (<0.8)
== END ==
LOC: M LAB REF 12:00
PROVIDERS: ATTEND Physician Assistant Medical
DX: Z01.89 Encounter for other specified special examinations (principal)

== ENCOUNTER → 2021-10-10 | Outpatient (CLI) | payer OTHER ==
[~2021-10-10] MED LIST changes: +ATOR40TA75 PO
== END ==
LOC: M LABSMTC 10:13
PROVIDERS: ATTEND Anesthesiology
DX: Z01.812 Encounter for preprocedural laboratory examination (principal); Z20.822 Contact with and (suspected) exposure to COVID-19

== ENCOUNTER 2021-10-15 10:21 | Day surgery (SDC) | payer OTHER ==
[~2021-10-15] VITALS: Ht 172.7 cm; Wt 93.0 kg
[~2021-10-15 10:21] MED LIST changes: +NS 1,000 ML IV ONE
--- OUTSIDE RECORDS SUMMARY | 2021-10-15 10:24 | CCD | Continuity of Care Document ---
Author Author Shara YU PA Organization Unknown Address [address] [facility], [address] [place] [address] Phone [phone] Care Team Providers Care Anime Designer Name Role Phone Dante Kelly MD @ [facility] Int AUTM Problems Active Problems Provider Date History of polyp of colon SONJA Meza Onset: 018 Family history of malignant neoplasm of gastrointestin al tract SONJA Meza Onset: 06/29/2018 Social History Type Date Description Comments Sex Unknown ETOH Use 6 A Week ETOH Use Occasionally consumes alcohol Recreational Drug Use Denies Drug Use Tobacco Use Start: Unknown End: Unknown Patient is a former smoker Allergies and adverse reactions Description No Known Drug Allergies Medications Active Medications SIG Qnty Indications Ordering Provide r Date Elmiron 100mg Capsules 2 PO b id Unknown Levothyroxine Sodium 100mcg Capsul es 1 PO Daily Unknown Sertraline HCL 50mg Tablets 1 by mouth every day Unknown Dexilant 30mg Capsules DR 1 by mouth every day Unknown Atorvastatin Calcium 40mg Tablets Take One Tablet By Mouth Every Day Unknown Immunizations Description No Information Available Vital Signs Date Vital Result Comment 08/24/2021 1:12pm BP Systolic 106 mmHg BP Diastolic 72 mmHg Body Temperature 98.3 F Height 67 inches 5'7" Weight 207.25 lb BMI (Body Mass Index) 32.5 kg/m2 [place] Body Weight 135 lb Weight 94.009 kg BSA (Body Surface Area) 2.05 m2 11/11/2020 8:42am Body Temperature 98.4 F Height 67 inches 5'7" Weight 209.00 lb BMI (Body Mass Index) 32.7 kg/m2 [place] Body Weight 135 lb Weight 94.802 kg BSA (Body Surface Area) 2.06 m2 Results Description No Information Available Procedures Date Code Description Status 08/24/2021 12594 Office/Outpatient New Moderate M DM 45-59 Minutes Completed Medical Devices Description No Information Available Encounters Type Date Location Provider Dx Diagnosis Office Visit 08/24/2021 1:00p [facility] CONCHIS Machado Z12.11 Encounter for screening for malignant ne oplasm of colon Z86.010 Personal history of colonic polyps K57.30 Dvrtclos of lg int w/o perfo ration or abscess w/o bleeding Z80.0 Family history of malignant neoplasm of digestive organs Assessments Date Code Description Provider 08/24/2021 Z12.11 Encounter for screening for michael gnant neoplasm of colon CONCHIS Dewitt 08/24/2021 Z86.010 Personal history of colonic poly ps CONCHIS Dewitt 08/24/2021 K57.30 Diverticulosis of la rge intestine without perforation or abscess without bleeding CONCHIS Dewitt 08/24/2021 Z80.0 Family history of malignant neop lasm of digestive organs CONCHIS Dewitt Plan of Treatment Future Appointment(s):* 10/26/2021 10:30 am - CON[facility]IS Dewitt at [facility] * 10/15/2021 11:45 am - Barrett Morris JR, MD at [facility] 08/24/2021 - CONCHIS Dewitt* Z12.11 Encounter for screening for malignant neoplasm of colon * Z86.010 Personal history of colonic polyps * K57.30 Diverticulosis of large intestine without perforation or abscess without bleeding * Z80.0 Family history of malignant neoplasm of digestive organs Functional Status Description No Information Available Mental Status Description No Information Available Referrals Description No Information Available
--- OUTSIDE RECORDS SUMMARY | 2021-10-15 10:24 | CCD | Continuity of Care Document ---
Author Author Shara MOLINA Organization Unknown Address [address] [place] [address] Phone [phone] Care Team Providers Care Spool Maker Name Role Phone Jitendra Molina AUTM [phone] Problems Description No Information Available Social History Type Date Description Comments Sex Unknown ETOH Use Occasionally consumes alcohol we ekends Tobacco Use Start: Unknown End: Unknown Patient is a former smoker quit 1994 13 pack/year history Exercise Type/Frequency Exercises sporadically Seat Belt/Car Seat always uses seat belt Guns in Home Yes, Locked Up Smoke Alarms Carbon Monoxide Detector: Yes Smoke Alarms Yes Allergies and adverse reactions Description No Information Available Medications Active Medications SIG Qnty Indications Ordering Provide r Date Zoloft 50mg Tablets 1 by mouth every day 14tabs CONCHIS Collazo JR 09/12/2020 Levothyroxine Sodium 100mcg Tablet s 1 by mouth every day 90tabs CONCHIS Collazo JR 020 Atorvastatin Calcium 40mg Tablets 1 by mouth every day 90tabs CONCHIS Collazo JR [address] 1 by mouth every day 90caps CONCHIS Collazo JR 020 Elmiron 100mg Capsules take1 capsule tid (new order) 45caps CONCHIS Collazo JR 009 Medications Administered in Office Medication SIG Qnty Indications Ordering Provider Date Immunization Adminstration,1 Vaccine/Tox oid Injection CONCHIS Collazo JR 04/2020 Immunizations CPT Code Status Date Vaccine Lot # [id number] Given 09/12/2020 Influenza Vaccin e Quadrivalent Preser/Antibiotic Free Im Use [id number] Refused 08/03/2021 Influenza Vaccin e Quadrivalent Preser/Antibiotic Free Im Use Vital Signs Date Vital Result Comment 08/03/2021 1:30pm BP Systolic 118 mmHg BP Diastolic 76 mmHg Heart Rate 75 /min Height 67.5 inches 5'7.50" Weight 207.00 lb BMI (Body Mass Index) 31.9 kg/m2 09/12/2020 11:27am BP Systolic 122 mmHg BP Diastolic 76 mmHg Heart Rate 92 /min Height 67.5 inches 5'7.50" Weight 208.00 lb O2 % BldC Oximetry 98 % RM Air BMI (Body Mass Index) 32.1 kg/m2 Results Test Acquired Date Facility Test Result H/L Range Note Coronavirus 2019 Nasopharygeal 10/10/2021 [facility] [address] [place], [place] [id number] [phone] Coronavirus 2019 Nasopharygeal ASSAY INFORMATIO <SEE N OTE> 1 Complete Blood Count 08/03/2021 [facility] [employer] javier joel Fence Erector: Dr Dante Kelly [place], [place] [id number] [phone] WBC 7.1 x10*3/UL 4.1 - 10.9 RBC 5.23 x10*6/UL 4.20 - 6.30 Hemoglobin 15.3 g/dL 12.0 - 18.0 Hematocrit 45.8 % 37.0 - 51.0 MCV 87.6 fL 80.0 - 97.0 MCH 29.2 pg 26.0 - 32.0 MCHC 33.3 g/dL 31.0 - 38.0 RDW 13.2 % 11.6 - 13.7 PLT 320 x10*3/UL 140 - 440 MPV 8.7 FL 7.8 - 11.0 Lymph % 30.0 % 10.0 - 58.5 Mid % 6.0 % 1.7 - 9.3 Neut % 64.0 % 37.0 - 92.0 Lymph # 2.1 x10*3/UL 0.6 - 4.1 Mid # 0.4 x10*3/UL 0.1 - 0.6 Neut # 4.6 x10*3/UL 2.0 - 7.8 Comprehensive Chem Profile 08/03/2021 [facility] javier Rich Fence Erector: [place] [address] [phone] Glucose 100 mg/dL High 74 - 99 2 BUN 16 mg/dL 7 - 18 Creatinine 1.0 mg/dL 0.6 - 1.3 Sodium 141 mEq/L 136 - 145 Potassium 4.1 mEq/L 3.5 - 5.1 Chloride 104 mEq/L 98 - 107 Carbon Dioxide 27 mEq/L 21 - 32 Calcium 9.3 mg/dL 8.5 - 10.1 Alk. Phosphatase 144 mg/dL High 46 - 116 Total Bilirubin 0.7 mg/dL 0.2 - 1.0 Ast (Sgot) 31 U/L 15 - 37 Alt (SGPT) 53 U/L 12 - 78 Albumin 3.9 g/dL 3.4 - 5.0 Total Protein 7.4 g/dL 6.4 - 8.2 A/G Ratio 1.11 CALC 1.00 - 1.90 GFR 56 mL/min Low >60 GFR >= 60 mL/min >60 3 Laboratory test finding 08/03/2021 [facility] [employer] [employer] javier mathis Fence Erector: [place] [address] [phone] Thyroid Stimulating Hormone 2.68 uIU/mL 0.3 6 - 3.74 1 ASSAY INFORMATION: Real Time RT-PCR NOTE: The COVID-19 assay has been cleared by the U.S. Food and Drug Administration under the Emergency Use Authorization (EUA). [facility] are designated as high complexity laboratories by the Clinical Laboratory Improvement Amendments of 1988(CLIA) and are qualified to perform this test. Not Detected 2 100-125 mg/dL PRE-DIABET ES/FASTING >126 mg/dL DIABETES/FASTING 3 CHRONIC KIDNEY DISEASE STAGI NG PER NKF STAGE I & II GFR >= 60 NORMAL TO MILDLY DECREASED STAGE III GFR 30-59 MODERATELY DECREASED STAGE IV GFR 15-29 SEVERELY DECREASED STAGE V GFR <15 VERY LITTLE GFR LEFT ESRD GFR <15 ON CLINICAL ASSOCIATE Procedures Date Code Description Status 08/03/2021 15224 Office/Outpatient Established Mo d MDM 30-39 Min Completed 06/26/2020 392900300 Diabetic Retinal Eye Exam Comple What's On Foodie Description No Information Available Encounters Type Date Location Provider Dx Diagnosis Office Visit 08/03/2021 1:20p [facility] CONCHIS Granados JR E03.9 Hypothyroidism, unspecified E78.00 Pure hypercholesterolemia, u nspecified R73.09 Other abnormal glucose K21.9 Gastro-esophageal reflux dis ease without esophagitis F41.9 Anxiety disorder, unspecifie d Z90.49 Acquired absence of other sp ecified parts of digestive tract N30.10 Interstitial cystitis (chron ic) without hematuria Z68.31 Body mass index [BMI] 31.0-3 1.9, adult E66.09 Other obesity due to excess calories Assessments Date Code Description Provider 08/03/2021 E03.9 Hypothyroidism, unspecified CONCHIS Linares JR 08/03/2021 E78.00 Pure hypercholesterolemia, unspe cified CONCHIS Collazo JR 08/03/2021 R73.09 Other abnormal glucose CONCHIS Collazo JR 08/03/2021 K21.9 Gastro-esophageal reflux disease without esophagitis CONCHIS Collazo JR 08/03/2021 F41.9 Anxiety disorder, unspecified Ro CONCHIS Mejia JR 08/03/2021 Z90.49 Acquired absence of other specif ied parts of digestive tract CONCHIS Collazo JR 08/03/2021 N30.10 Interstitial cystitis (chronic) without hematuria CONCHIS Collazo JR 08/03/2021 Z68.31 Body mass index [BMI] 31.0-31.9, adult CONCHIS Collazo JR 08/03/2021 E66.09 Other obesity due to excess tila tyrone CONCHIS Collazo JR Plan of Treatment Future Appointment(s):* 04/19/2022 10:40 am - CONCHIS Collazo JR at [facility] 08/03/2021 - CONCHIS Collazo JR* E03.9 Hypothyroidism, unspecified * E78.00 Pure hypercholesterolemia, unspecified * R73.09 Other abnormal glucose * K21.9 Gastro-esophageal reflux disease without esophagitis * F41.9 Anxiety disorder, unspecified * Z90.49 Acquired absence of other specified parts of digestive tract * N30.10 Interstitial cystitis (chronic) without hematuria * Z68.31 Body mass index [BMI] 31.0-31.9, adult * E66.09 Other obesity due to excess calories* Comments:* Weight loss would be favorable at this time. Implement dietary modifications (low fat, low carb, high fiber, lean proteins, decreasing portion sizes, small frequent high protein snacks, and making substitutions in refined sugars).Implement regular aerobic exercise as able and tolerated and increase daily water intake * All * Comments:* Total time spent with patient was 38 minutes. Patient verbalized understanding and agreement with the plans. Return to clinic when she returns from [place] sometime in March or April sooner if needed as always. She did refuse the flu shot today, states that she already had it Functional Status Description No Information Available Mental Status Description No Information Available Referrals Description No Information Available
--- OUTSIDE RECORDS SUMMARY | 2021-10-15 10:25 | CCD | Continuity of Care Document ---
Author Author Shara MOLINA Organization Unknown Address [address] [place] [address] Phone [phone] Care Team Providers Care Business Development Agent Name Role Phone Jitendra Molina AUTM [phone] Problems Description No Information Available Social History Type Date Description Comments Sex Unknown ETOH Use Occasionally consumes alcohol we ekends Tobacco Use Start: Unknown End: Unknown Patient is a former smoker quit 1994 13 pack/year history Exercise Type/Frequency Exercises sporadically Seat Belt/Car Seat always uses seat belt Guns in Home Yes, Locked Up Smoke Alarms Carbon Monoxide Detector: Yes Smoke Alarms Yes Allergies, Adverse Reactions, Alerts Description No Information Available Medications Active Medications [...] CONCHIS Collazo JR 020 Elmiron 100mg Capsules take 2 capsules by mouth two times a day 360caps CONCHIS Collazo JR 0 11/19/2008 Medications Administered in Office Medication SIG Qnty Indications Ordering Provider Date Immunization Adminstration,1 Vaccine/Tox oid Injection CONCHIS Collazo JR 04/2020 Immunizations CPT Code Status Date Vaccine Lot # [id number] Given 09/12/2020 Influenza Vaccin e Quadrivalent Preser/Antibiotic Free Im Use [id number] Refused 08/03/2021 Influenza Vaccin e Quadrivalent Preser/Antibiotic [...] Date Facility Test Result H/L Range Note Laboratory test finding 08/03/2021 [facility] [employer] Coach Mechanic: [place] [address] [phone] TSH <pending> Procedures Date Code Description Status 06/26/2020 [id number] Diabetic Retinal Eye Exam Comple ENDOGENX Devices Description No Information Available Encounters Description No Information Available Assessments Description No Information Available Plan of Treatment Future Appointment(s):* 04/19/2022 10:40 am - CONCHIS Collazo JR at [facility] Functional Status Description No Information Available Mental Status Description No Information Available Referrals Description No Information Available
--- OUTSIDE RECORDS SUMMARY | 2021-10-15 10:25 | CCD | Continuity of Care Document ---
Author Author Shara MOLINA Organization Unknown Address [address] [place] [address] Phone [phone] Care Team Providers Care Sales Route Driver Name Role Phone Jitendra Molina AUTM [phone] Problems Description No Information Available Social History [...] CPT Code Status Date Vaccine Lot # [id number] Given 09/12/2020 Influenza Vaccin e Quadrivalent Preser/Antibiotic Free Im Use [id number] Refused 08/03/2021 Influenza Vaccin e Quadrivalent Preser/Antibiotic [...] Date Facility Test Result H/L Range Note Complete Blood Count 08/03/2021 [facility] [employer] Form Tamping Machine Operator: [place] [address] [phone] WBC 7.1 x10*3/UL 4.1 - 10.9 RBC [...] 2.0 - 7.8 Comprehensive Chem Profile 08/03/2021 [facility] Form Tamping Machine Operator: [place] [address] [phone] Glucose 100 mg/dL High 74 - 99 1 BUN 16 mg/dL 7 - 18 Creatinine [...] Low >60 GFR >= 60 mL/min >60 2 Laboratory test finding 08/03/2021 [facility] Form Tamping Machine Operator: [place] [address] [phone] Thyroid Stimulating Hormone 2.68 uIU/mL 0.3 6 - 3.74 1 100-125 mg/dL PRE-DIABET ES/FASTING >126 mg/dL DIABETES/FASTING 2 CHRONIC KIDNEY DISEASE STAGI NG PER NKF STAGE I & II GFR >= 60 NORMAL TO MILDLY DECREASED STAGE III GFR 30-59 MODERATELY DECREASED STAGE IV GFR 15-29 SEVERELY DECREASED STAGE V GFR <15 VERY LITTLE GFR LEFT ESRD GFR <15 ON RUG SETTER AXMINSTER Procedures Date Code Description Status 06/26/2020 [id number] Diabetic Retinal Eye Exam Comple [employer] Description No Information Available Encounters Description No Information Available Assessments Date Code Description Provider 08/03/2021 E03.9 Hypothyroidism, unspecified Robe CONCHIS Sandoval JR 08/03/2021 E78.00 Pure hypercholesterolemia, unspe cified CONCHIS Collazo JR 08/03/2021 R73.09 Other abnormal glucose CONCHIS Collazo JR 08/03/2021 K21.9 Gastro-esophageal reflux disease without esophagitis CONCHIS Collazo JR 08/03/2021 F41.9 Anxiety disorder, unspecified Ro CONCHIS Mejia JR 08/03/2021 Z90.49 Acquired absence of other specif ied parts of digestive tract CONCHIS Collazo JR 08/03/2021 N30.10 Interstitial cystitis (chronic) without hematuria CONCHIS Collazo JR 08/03/2021 E66.09 Other obesity due to excess tila tyrone CONCHIS Collazo JR Plan of Treatment Future Appointment(s):* 04/19/2022 10:40 am - CONCHIS Collazo JR at [facility] 08/03/2021 - CONCHIS Collazo JR* E03.9 Hypothyroidism, unspecified * E78.00 Pure hypercholesterolemia, unspecified * R73.09 Other abnormal glucose * K21.9 Gastro-esophageal reflux disease without esophagitis * F41.9 Anxiety disorder, unspecified * Z90.49 Acquired absence of other specified parts of digestive tract * N30.10 Interstitial cystitis (chronic) without hematuria * E66.09 Other obesity due to excess [...] Return to clinic when she returns from [place] sometime in March or April sooner if needed as always. She did refuse the flu shot today, states that she already had it Functional Status Description No Information Available Mental Status Description No Information Available Referrals Description No Information Available
--- OUTSIDE RECORDS SUMMARY | 2021-10-15 10:25 | CCD ---
Author Author [facility] Organization [facility] Address Unknown Phone Unavailable Care Team Providers Care Belly Packer Name Role Phone Clair Wiley MD Unavailable Unavailable Clair Wiley MD Unavailable Unavailable Clair Wiley MD Unavailable Unavailable Clair Wiley MD Unavailable Unavailable Clair Wiley MD Unavailable Unavailable Clair Wiley MD Unavailable Unavailable Clair Wiley MD Unavailable Unavailable Clair Wiley MD Unavailable Unavailable Clair Wiley MD Unavailable Unavailable Clair Wiley MD Unavailable Unavailable Clair Wiley MD Unavailable Unavailable Clair Wiley MD Unavailable Unavailable Clair Wiley MD Unavailable Unavailable Clair Wiley MD Unavailable Unavailable Clair Wiley MD Unavailable Unavailable Clair Wiley MD Unavailable Unavailable Clair Wiley MD Unavailable Unavailable Clair Wiley MD Unavailable Unavailable Cliar Wiley MD Unavailable Unavailable Clair Wiley MD Unavailable Unavailable Clair Wiley MD Unavailable Unavailable Clair Wiley MD Unavailable Unavailable Clair Wiley MD Unavailable Unavailable Clair Wiley MD Unavailable Unavailable Clair Wiley MD Unavailable Unavailable Clair Wiley MD Unavailable Unavailable Clair Wiley MD Unavailable Unavailable Clair Wiley MD Unavailable Unavailable Clair Wiley MD Unavailable Unavailable Clair Wiley MD Unavailable Unavailable Clair Wiley MD Unavailable Unavailable PICKERAL JR, J RYLEY PA-C Unavailable Unavailable PICKERAL JR, J RYLEY PA-C Unavailable Unavailable PICKERAL JR, J RYLEY PA-C Unavailable Unavailable PICKERAL JR, J RYLEY PA-C Unavailable Unavailable PICKERAL JR, J RYLEY PA-C Unavailable Unavailable PICKERAL JR, J RYLEY PA-C Unavailable Unavailable PICKERAL JR, J RYLEY PA-C Unavailable Unavailable PICKERAL JR, J RYLEY PA-C Unavailable Unavailable PICKERAL JR, J RYLEY PA-C Unavailable Unavailable PICKERAL JR, J RYLEY PA-C Unavailable Unavailable PICKERAL JR, J RYLEY PA-C Unavailable Unavailable PICKERAL JR, J RYLEY PA-C Unavailable Unavailable PICKERAL JR, J RYLEY PA-C Unavailable Unavailable PICKERAL JR, J RYLEY PA-C Unavailable Unavailable PICKERAL JR, J RYLEY PA-C Unavailable Unavailable PICKERAL JR, J RYLEY PA-C Unavailable Unavailable PICKERAL JR, J RYLEY PA-C Unavailable Unavailable PICKERAL JR, J RYLEY PA-C Unavailable Unavailable PICKERAL JR, J RYLEY PA-C Unavailable Unavailable PICKERAL JR, J RYLEY PA-C Unavailable Unavailable PICKERAL JR, J RYLEY PA-C Unavailable Unavailable PICKERAL JR, J RYLEY PA-C Unavailable Unavailable PICKERAL JR, J RYLEY PA-C Unavailable Unavailable PICKERAL JR, J RYLEY PA-C Unavailable Unavailable PICKERAL JR, J RYLEY PA-C Unavailable Unavailable PICKERAL JR, J RYLEY PA-C Unavailable Unavailable PICKERAL JR, J RYLEY PA-C Unavailable Unavailable Milton, L Digna RPA Unavailable Unavailable Milton, L Digna RPA Unavailable Unavailable Milton, L Digna RPA Unavailable Unavailable Milton, L Digna RPA Unavailable Unavailable Milton, L Digna RPA Unavailable Unavailable Milton, L Digna RPA Unavailable Unavailable Milton, L Digna RPA Unavailable Unavailable Milton, L Digna RPA Unavailable Unavailable Milton, L Digna RPA Unavailable Unavailable Milton, L Digna RPA Unavailable Unavailable Milton, L Digna RPA Unavailable Unavailable Milton, L Digna RPA Unavailable Unavailable Milton, L Digna RPA Unavailable Unavailable Milton, L Digna RPA Unavailable Unavailable Milton, L Digna RPA Unavailable Unavailable Milton, L Digna RPA Unavailable Unavailable Milton, L Digna RPA Unavailable Unavailable Milton, L Digna RPA Unavailable Unavailable Milton, L Digna RPA Unavailable Unavailable Milton, L Digna RPA Unavailable Unavailable Milton, L Digna RPA Unavailable Unavailable Milton, L Digna RPA Unavailable Unavailable Milton, L Digna RPA Unavailable Unavailable Milton, L Digna RPA Unavailable Unavailable Milton, L Digna RPA Unavailable Unavailable Milton, L Digna RPA Unavailable Unavailable Milton, L Digna RPA Unavailable Unavailable Milton, L Digna RPA Unavailable Unavailable Milton, L Digna RPA Unavailable Unavailable Milton, L Digna RPA Unavailable Unavailable Milton, L Digna RPA Unavailable Unavailable Milton, L Digna RPA Unavailable Unavailable Re-disclosure Warning The records that you are about to access may contain information from federally-assisted alcohol or drug abuse programs. If such information is present, then the following federally mandated warning applies: This information has been disclosed to you from records protected by federal confidentiality rules (42 CFR part 2). The federal rules prohibit you from making any further disclosure of this information unless further disclosure is expressly permitted by the written consent of the person to whom it pertains or as otherwise permitted by 42 CFR part 2. A general authorization for the release of medical or other information is NOT sufficient for this purpose. The Federal rules restrict any use of the information to criminally investigate or prosecute any alcohol or drug abuse patient.The records that you are about to access may contain highly sensitive health information, the redisclosure of which is protected by Article 27-F of the [facility] Public Health law. If you continue you may have access to information: Regarding HIV / AIDS; Provided by facilities licensed or operated by the [facility] Office of Mental Health; or Provided by the [facility] Office for People With Developmental Disabilities. If such information is present, then the following [facility] mandated warning applies: This information has been disclosed to you from confidential records which are protected by state law. State law prohibits you from making any further disclosure of this information without the specific written consent of the person to whom it pertains, or as otherwise permitted by law. Any unauthorized further disclosure in violation of state law may result in a fine or alf sentence or both. A general authorization for the release of medical or other information is NOT sufficient authorization for further disc losure. Family History Family Member Name Family Member Gender Family Member Status Date o f Status Description Data Source(s) Unknown Unknown Problem [facility] ([facility]) Unknown Male Problem [facility] ([facility]) Unknown Male Problem [facility] ([facility]) Encounters Encounter Providers Location Date Indications Data Source(s ) Outpatient Attender: Digna Milton LUIS ARMANDO Deng/[place]/Jose/R eindl 08/24/2021 01:00:00 PM EDT [facility] ([facility] Outpatient Attender: RYLEY Hernandez 0 08/03/2021 01:20:00 PM EDT [facility] ([facility] ) Outpatient Attender: Mark Deng/[place]/Jose/Re indl 11/11/2020 07:30:00 AM EST [facility] ([facility], ) Outpatient Attender: Mark Deng/[place]/Jose/Re indl 10/08/2020 08:20:00 AM EST [facility] ([facility] Outpatient Attender: RYLEY Hernandez 1 11/12/2019 10:20:00 AM EST [facility] ([facility] ) Immunizations Vaccine Date Status Description Data Source(s) Influenza, injectable, MDCK, preservative free, johnson [facility]ent 08/03/2021 01:39:00 PM EDT completed [facility] Influenza, injectable, MDCK, preservative free, johnson valent 09/12/2020 10:36:00 AM EST completed [facility]) Medications Medication Brand Name Start Date Product Form Dose Route Admi nistrative Instructions Pharmacy Instructions Status Indications Reaction Description Data Source(s) Immunization Adminstration,1 Vaccine/Toxoid 09/12/2020 12:00 :00 AM EST completed [facility] ([facility]) Medication administered onsite Sertraline 50 MG Oral Tablet [Zoloft] Zoloft 09/12/2020 12:00:00 AM EST ORAL active [facility] ([facility]) Insurance Providers Payer name Policy type / Coverage type Policy ID Covered democrat ID Covered democrat's relationship to mclaughlin Policy Mclaughlin Plan Information POMCO [id number] SP [id number] POMCO [id number] SP [id number] Pomco (pr) Commercial [id number] Self Pomco Risk MGMNT [employer] Workers Compensation [id number] Self Pomco (pr) Commercial [id number] Self [id number] Pomco (pr) Commercial [id number] Self [id number] UMR [id number] Denise [id number] Umr/Uhc/Pomco Health Maintenance Organization (HMO) [id number] Self [id number] UMR [facility] [id number] SP [id number] POMCO PPO O [id number] S [id number] POMCO [id number] SP [id number] Pomco [id number] 0 [id number] Pomco Commercial [id number] Self POMCO [id number] SP [id number] UMR [facility] [id number] SP [id number] [facility] [id number] SP [id number] UMR O [id number] S [id number] [employer] [place] Other 0 [id number] Self 0 Umr (pr) Medigap Part B [id number] Self [id number] Umr/Uhc/Pomco Health Maintenance Organization (HMO) [id number] Self [id number] Umr/Uhc/Pom[employer] Health Maintenance Organization (HMO) [id number] Self [id number] Problems, Conditions, and Diagnoses No Information Surgeries/Procedures Procedure Description Date Indications Data Source(s) OFFICE OUTPATIENT NEW 45 MINUTES 08/24/2021 12:00:00 A M [facility]AME [facility] ([facility], ) OFFICE OUTPATIENT VISIT 25 MINUTES 08/03/2021 12:00:00 AM KWAME WRAY ([facility]) Results ID Date Data Source [id number] 10/10/2021 10:10:00 AM EST [facility] Name Value Range Interpretation Code Description Data Ramila rce(s) Supporting Document(s) SARS-CoV-2 (COVID-19) RNA [Presence] in Respiratory specimen by MAUREEN with probe detection Not Detected [facility] This lab was ordered by [facility] and reported by [employer] ID Date Data Source [id number] 10/10/2021 10:10:00 AM EST [facility] ([facility]) Name Value Range Interpretation Code Description Data Ramila rce(s) Supporting Document(s) Coronavirus 2019 Nasopharygeal Laboratory test result [facility]) ASSAY INFORMATION: Real Time RT-PCR NOTE: The COVID-19 assay has been cleared by the U.S. Food and Drug Administration under the Emergency Use Authorization (EUA). [facility] and [employer] are designated as high complexity laboratories by the Clinical Laboratory Improvement Amendments of 1988(CLIA) and are qualified to perform this test. Not Detected ID Date Data Source [id number] 08/03/2021 01:50:00 PM EDT [facility] ([facility]) Name Value Range Interpretation Code Description Data Ramila rce(s) Supporting Document(s) Thyrotropin [Units/volume] in Serum or Plasma by Detec tion limit <= 0.05 mIU/L 2.68 uIU/mL 0.36-3.74 [facility] ([facility] ) ID Date Data Source [id number] 08/03/2021 01:50:00 PM EDT [facility]) Name Value Range Interpretation Code Description Data Ramila rce(s) Supporting Document(s) Glucose [Mass/volume] in Serum or Plasma 100 mg/dL 74-99 [facility] ([facility]) 100-125 mg/dL PRE-DIABETES/FASTING >126 mg/dL DIABETES/FASTING Urea nitrogen [Mass/volume] in Serum or Plasma 16 mg/dL 7-18 [facility] ([facility]) Creatinine 1.0 mg/dL 0.6-1.3 [facility] Sodium [Moles/volume] in Serum or Plasma 141 meq/L 136-145 [facility] ([facility]) Potassium [Moles/volume] in Serum or Plasma 4.1 meq/L 3.5-5.1 [facility] ([facility]) Carbon dioxide, total [Moles/volume] in Serum or Plasma 27 meq/L 21 -32 [facility] ([facility]) Chloride [Moles/volume] in Serum or Plasma 104 meq/L 98-107 [facility] Calcium [Mass/volume] in Serum or Plasma 9.3 mg/dL 8.5-10.1 [facility] ([facility]) Alkaline phosphatase isoenzyme [Units/volume] in Serum or Pl asma 144 mg/dL 46-116 [facility] ([facility]) Aspartate aminotransferase [Enzymatic activity/volume] in Serum or Plasma 31 U/L 15-37 [facility] ([facility] ) Total Bilirubin 0.7 mg/dL 0.2-1.0 [facility] ([facility]) Alanine aminotransferase [Enzymatic activity/volume] in Seru m or Plasma 53 U/L 12-78 [facility] ([facility]) Proteinase 3 Ab [Units/volume] in Serum 7.4 g/dL 6.4-8.2 [facility] ([facility]) Albumin [Mass/volume] in Serum or Plasma 3.9 g/dL 3.4-5.0 [facility] ([facility]) A/G Ratio 1.11 CALC 1.00-1.90 [facility]) Glomerular filtration rate/1.73 sq M pre dicted among non-blacks [Volume Rate/Area] in Serum or Plasma by Creatinine-based formula (MDRD) 56 mL/min [facility] Glomerular filtration rate/1.73 sq M pre dicted among blacks [Volume Rate/Area] in Serum or Plasma by Creatinine-based formula (MDRD) Laboratory test result [facility] <content>CHRONIC KIDNEY DISEASE STAGING PER NKF</content>
<content></content>
<content>STAGE I & II GFR >= 60 NORMAL TO MILDLY DECREASED</content>
<content>STAGE III GFR 30-59 MODERATELY DECREASED</content>
<content>STAGE IV GFR 15-29 SEVERELY DECREASED</content>
<content>STAGE V GFR <15 VERY LITTLE GFR LEFT</content>
<content>ESRD GFR <15 ON COMBINATION WELDER APPRENTICE</content>
<content></content> ID Date Data Source [id number] 08/03/2021 01:50:00 PM EDT [facility] ([facility] Name Value Range Interpretation Code Description Data Ramila rce(s) Supporting Document(s) Hemoglobin [Mass/volume] in Blood 15.3 g/dL 12.0-18.0 [facility] ([facility]) Leukocytes [#/volume] in Blood by Automated count 7.1 x10*3/UL 4.1-10 .9 [facility] Erythrocytes [#/volume] in Blood by Automated count 5.23 x10*6/UL 4.2 0-6.30 [facility] Hematocrit [Volume Fraction] of Blood by Automated count 45.8 % 3 7.0-51.0 [facility] ([facility]) MCV 87.6 fL 80.0-97.0 [facility] ([facility]) MCH 29.2 pg 26.0-32.0 [facility] ([facility]) Erythrocyte distribution width [Ratio] by Automated count 13.2 % 11.6-13.7 [facility] MCHC 33.3 g/dL 31.0-38.0 [facility] ([facility]) Lymph % 30.0 % 10.0-58.5 [facility] ([facility]) Platelets [#/volume] in Blood by Automated count 320 x10*3/UL 140-440 [facility] ([facility]) MPV 8.7 FL 7.8-11.0 [facility] ([facility]) Lymph # 2.1 x10*3/UL 0.6-4.1 [facility] ([facility]) Neut % 64.0 % 37.0-92.0 [facility] Mid % 6.0 % 1.7-9.3 [facility] Mid # 0.4 x10*3/UL 0.1-0.6 [facility] ([facility]) Neut # 4.6 x10*3/UL 2.0-7.8 [facility] ([facility]) ID Date Data Source [id number] 11/06/2020 12:00:00 AM EST [facility] Duy Archer DO Patient Name: MELLY VALADEZ[address] [facility] Date [facility] 1955[facility] [place] [address] Date of Exam: 11/06/2020#: Fax: [phone] EXAM: MAMMO SCREENING WITH CADCLINICAL INFORMATION: Screening.Based on the personal health history and familial cancer history yourpatient supplied at the time of imaging, her lifetime risk of breast cancerestimated by the Tyrer-Cuzick model is 24.3%. However, due to the unknowngene mutation status, there are limitations to the accuracy of this riskestimate. Similarly, if anything changes in the personal and/or familyhistory this percentage could increase or decrease. Currently, theNational Comprehensive Cancer Network and [place] Cancer Society recommendadjunctive breast MRI screening starting at age 30 for women with a> 20-25% lifetime risk of developing breast cancer.Your patient's personal and/or family history of cancer submitted at thetime of imaging is suggestive of a hereditary cancer syndrome. She meetsthe criteria for genetic testing established by National ComprehensiveCancer Network and [place] Cancer Society guidelines. She should pursue arisk assessment with a hereditary cancer specialist which may includetesting based on these criteria. The benefits and limitations of genetictesting would be discussed, including potential changes to medicalmanagement based on the results. Your patient declined myRisk genetictesting at this time.Digital screening (2D) mammography was performed bilaterally in the CC andMLO projections. Additionally, breast tomosynthesis (3D mammography) wasperformed bilaterally in the CC and MLO projections. Today's exam wascompared to the prior exam(s).By history, the patient has no complaints of a palpable breast abnormalityor other significant breast complaints.The patient states last clinical breast exam was in October of 2020.The breasts are unchanged in size and shape. There are no kei-soft tissuedensities or spiculated masses. There is no internal architecturaldistortion. There are no suspicious kei-calcific clusters. Skinthickening or nipple retraction is not present.The Volpara volumetric breast density category is B, there are scatteredareas of fibroglandular density.IMPRESSION:BI-RADS Category 1 - Negative Mammogram. Stable mammogram. There is noevidence of malignant alteration of the breasts. Followup examinationrecommended in one year.This mammogram was read with the assistance of [employer], an FDAapproved computer aided detection system for mammography.Negative x-ray reports should not delay surgical consultation if a dominantor clinically suspicious mass is present.Not all breast cancers can be identified by mammography. Therefore, werecommend that you continue to perform regular breast self-examination andphysical examination and then promptly contact your physician of anyconcerns or changes.Adenosis and dense breasts may obscure an underlying neoplasm.JONES Best/Marianna you for referring MELLY VALADEZ to our office. Electronically Signed - RONNIE NARAYANAN DO 11/10/20 13:14 Name Value Range Interpretation Code Description Data Ramila rce(s) Supporting Document(s) ID Date Data Source [id number] 10/28/2020 12:00:00 AM EST [facility] Mark Wiley MD Patient Name: GEOVANNA VALADEZ [facility] Date of : 1955[address] Date of Exam: 10/28/2020JESUS Larson [id number]#: Fax: [phone] EXAM: MRI KNEE RIGHT WITHOUT CONTRASTCLINICAL INFORMATION: Chronic pain anteriorly.3T multiplanar MRI imaging of the right knee was obtained using varioussequences.There are no prior right knee MRI's for comparison.The anterior and posterior horns of the lateral meniscus are within normallimits. The anterior and posterior horns of the medial meniscus are withinnormal limits. The anterior and posterior cruciate ligaments are intact.The quadriceps and patellar tendons are intact. The medial and lateralcollateral ligaments are intact. The medial and lateral patellarretinacula are intact.There is a fluid collection and mixed signal seen superficial to thepatella in the region of the prepatellar bursa. This measuresapproximately 3.8 x 4.1 x 5.4 cm. There is no joint effusion. There is noBaker's cyst. There is [id number] thinning and irregularity of allarticular cartilages.IMPRESSION:1. Prepatellar bursal fluid collection and mixed signal. Infectiousetiology cannot be ruled out by this exam. Consider contrast enhancedexamination if clinically relevant.2. There is no evidence of acute internal derangement.3. 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 Electronically Signed - RONNIE NARAYANAN DO 11/03/20 16:41 Name Value Range Interpretation Code Description Data Ramila rce(s) Supporting Document(s) ID Date Data Source [id number] 09/12/2020 11:49:00 AM EST [facility] ([facility]) Name Value Range Interpretation Code Description Data Ramila rce(s) Supporting Document(s) Thyrotropin [Units/volume] in Serum or Plasma by Detec tion limit <= 0.05 mIU/L 1.67 uIU/mL 0.36-3.74 [facility] ([facility] ) ID Date Data Source [id number] 09/12/2020 11:49:00 AM EST [facility] ([facility] Name Value Range Interpretation Code Description Data Ramila rce(s) Supporting Document(s) Hemoglobin A1c/Hemoglobin.total in Blood 5.9 % [facility] Lab Result Notes: Pre-Diabetes 5.7 - 6.4 % Diabetes = or > 6.5% Glucose mean value [Mass/volume] in Blood Estimated fr om glycated hemoglobin 123 mg/dL 60-110 [facility] ID Date Data Source [id number] 09/12/2020 11:49:00 AM EST [facility] ([facility] Name Value Range Interpretation Code Description Data Ramila rce(s) Supporting Document(s) Leukocytes [#/volume] in Blood by Automated count 8.2 x10*3/UL 4.1-10 .9 [facility] ([facility]) Hemoglobin [Mass/volume] in Blood 14.8 g/dL 12.0-18.0 [facility] ([facility]) Erythrocytes [#/volume] in Blood by Automated count 5.07 x10*6/UL 4.2 0-6.30 [facility]) MCH 29.3 pg 26.0-32.0 [facility] MCHC 33.8 g/dL 31.0-38.0 [facility] MCV 86.6 fL 80.0-97.0 [facility] Hematocrit [Volume Fraction] of Blood by Automated count 43.9 % 3 7.0-51.0 [facility]) Platelets [#/volume] in Blood by Automated count 331 x10*3/UL 140-440 [facility] ([facility]) MPV 8.9 FL 7.8-11.0 [facility] ([facility]) Erythrocyte distribution width [Ratio] by Automated count 12.9 % 11.6-13.7 [facility] ([facility]) Lymph % 30.6 % 10.0-58.5 [facility] ([facility] Neut % 62.5 % 37.0-92.0 [facility] Mid % 6.9 % 1.7-9.3 [facility] ([facility]) Neut # 5.1 x10*3/UL 2.0-7.8 [facility] ([facility]) Mid # 0.6 x10*3/UL 0.1-0.6 [facility] ([facility]) Lymph # 2.5 x10*3/UL 0.6-4.1 [facility] ([facility]) ID Date Data Source [id number] 09/12/2020 11:49:00 AM EST [facility] ([facility]) Name Value Range Interpretation Code Description Data Ramila rce(s) Supporting Document(s) Thyrotropin [Units/volume] in Serum or Plasma by Detec tion limit <= 0.05 mIU/L Laboratory test result [facility] ([facility]) Hemoglobin A1c/Hemoglobin.total in Blood Laboratory test result [facility] ([facility]) Procedure Social History No Information Vital Signs ID Date Data Source UNK Name Value Range Interpretation Code Description Data Source(s) Systolic blood pressure 106 mm[Hg] 106 mm[Hg] [facility] ([facility]) Diastolic blood pressure 72 mm[Hg] 72 mm[Hg] [facility] Body temperature 98.3 [degF] 98.3 [degF] [facility] ([facility]) Body height 67 [in_i] 67 [in_i] [facility] ([facility]) 5'7" Body weight 207.25 [lb_av] 207.25 [lb_av] [facility] ([facility]) Body mass index (BMI) [Ratio] 32.5 kg/m2 32.5 k g/m2 [facility] ([facility]) [place] body weight 135 [lb_av] 135 [lb_av] [facility] ([facility]) Body weight 94.009 kg 94.009 kg [facility] Body surface area Derived from formula 2.05 m2 2.05 m2 [facility] ([facility]) Diastolic blood pressure 76 mm[Hg] 76 mm[Hg] [facility] ([facility]) Heart rate 75 /min 75 /min [facility] ([facility]) Systolic blood pressure 118 mm[Hg] 118 mm[Hg] M EDENT ([facility]) Body height 67.5 [in_i] 67.5 [in_i] [facility] ([facility]) 5'7.50" Body weight 207.00 [lb_av] 207.00 [lb_av] MEDEN T ([facility]) Body mass index (BMI) [Ratio] 31.9 kg/m2 31.9 k g/m2 [facility] ([facility]) Body temperature 98.4 [degF] 98.4 [degF] [facility] Body height 67 [in_i] 67 [in_i] [facility] ([facility]) 5'7" Body temperature 98.4 [degF] 98.4 [degF] [facility] ([facility]) Body height 67 [in_i] 67 [in_i] [facility] ([facility]) 5'7" Body weight 209.00 [lb_av] 209.00 [lb_av] MEDEN T ([facility]) Body mass index (BMI) [Ratio] 32.7 kg/m2 32.7 k g/m2 [facility] ([facility]) [place] body weight 135 [lb_av] 135 [lb_av] [facility] T ([facility]) Body weight 94.802 kg 94.802 kg [facility] Body surface area Derived from formula 2.06 m2 2.06 m2 [facility] ([facility]) Body weight 209.00 [lb_av] 209.00 [lb_av] MED[facility] T ([facility]) Body mass index (BMI) [Ratio] 32.7 kg/m2 32.7 k g/m2 [facility] ([facility]) [place] body weight 135 [lb_av] 135 [lb_av] MED[facility] T ([facility]) Body weight 94.802 kg 94.802 kg [facility] ([facility]) Body surface area Derived from formula 2.06 m2 2.06 m2 [facility] ([facility]) Body temperature 97.6 [degF] 97.6 [degF] [facility] ([facility]) Body height 67 [in_i] 67 [in_i] [facility] ([facility]) 5'7" Body weight 200.00 [lb_av] 200.00 [lb_av] MEDEN T ([facility]) Body mass index (BMI) [Ratio] 31.3 kg/m2 31.3 k g/m2 [facility] ([facility]) [place] body weight 135 [lb_av] 135 [lb_av] [facility] T ([facility]) Body weight 90.720 kg 90.720 kg [facility] ([facility]) Body surface area Derived from formula 2.02 m2 2.02 m2 [facility] ([facility]) Systolic blood pressure 122 mm[Hg] 122 mm[Hg] [facility] ([facility]) Diastolic blood pressure 76 mm[Hg] 76 mm[Hg] [facility] Heart rate 92 /min 92 /min [facility] ([facility]) Body height 67.5 [in_i] 67.5 [in_i] [facility] 5'7.50" Body weight 208.00 [lb_av] 208.00 [lb_av] MEDEN T ([facility]) Oxygen saturation in Arterial blood by Pulse oximetry 98 % 98 % [facility] RM Air Body mass index (BMI) [Ratio] 32.1 kg/m2 32.1 k g/m2 [facility] ([facility])
--- OUTSIDE RECORDS SUMMARY | 2021-10-15 10:25 | CCD | Continuity of Care Document ---
Author Author Shara MOLINA Organization Unknown Address [address] [place] [address] Phone [phone] Care Team Providers Care Reconnaissance Crewmember Name Role Phone Jitendra Molina AUTM [phone] Problems Description No Information Available Social History [...] CPT Code Status Date Vaccine Lot # [id number] Given 09/12/2020 Influenza Vaccin e Quadrivalent Preser/Antibiotic Free Im Use [id number] Refused 08/03/2021 Influenza Vaccin e Quadrivalent Preser/Antibiotic [...] H/L Range Note Complete Blood Count 08/03/2021 [facility] Supervisor javier joel Store Specialist: [place] [address] [phone] WBC 7.1 x10*3/UL 4.1 - 10.9 RBC [...] 2.0 - 7.8 Comprehensive Chem Profile 08/03/2021 [facility] Ch[facility]vez Store Specialist: [place] [address] [phone] Glucose 100 mg/dL High 74 - 99 [...] mL/min >60 2 Laboratory test finding 08/03/2021 [facility]on Store Specialist: [place] [address] [phone] Thyroid Stimulating Hormone 2.68 uIU/mL 0.3 6 - 3.74 1 100-125 mg/dL PRE-DIABET ES/FASTING >126 mg/dL DIABETES/FASTING 2 CHRONIC KIDNEY DISEASE STAGI NG PER NKF STAGE I & II GFR >= 60 NORMAL TO MILDLY DECREASED STAGE III GFR 30-59 MODERATELY DECREASED STAGE IV GFR 15-29 SEVERELY DECREASED STAGE V GFR <15 VERY LITTLE GFR LEFT ESRD GFR <15 ON FLARE WORKER Procedures Date Code Description Status 08/03/2021 72162 Office/Outpatient Established Mo d MDM 30-39 Min Completed 06/26/2020 [id number] Diabetic Retinal Eye Exam Comple [place] Description No Information Available Encounters Type Date Location Provider Dx Diagnosis [facility] E[facility].9 Hypothyroidism, unspecified E78.00 Pure hypercholesterolemia, u [...] Code Description Provider 08/03/2021 E03.9 Hypothyroidism, unspecified Manuel CONCHIS Sandoval JR 08/03/2021 E78.00 Pure hypercholesterolemia, [...] 10:40 am - CONCHIS Collazo JR at [facility] 08/03/2021 - CONCHIS Collazo JR* [...] Return to clinic when she returns from [place] sometime in March or April sooner if needed as always. She did refuse the flu shot today, states that she already had it Functional Status Description No Information Available Mental Status Description No Information Available Referrals Description No Information Available
--- OUTSIDE RECORDS SUMMARY | 2021-10-15 10:25 | CCD | Continuity of Care Document ---
Author Author Shara YU PA Organization Unknown Address [address], [address] [place] [address] Phone [phone] Care Team Providers Care Associate Pastor Name Role Phone Dante Kelly MD @ [facility] Problems Active Problems Provider Date [...] lb BMI (Body Mass Index) 32.5 kg/m2 [place] Body Weight 135 lb Weight 94.009 kg BSA (Body Surface Area) 2.05 m2 11/11/2020 8:42am Body Temperature 98.4 F Height 67 inches 5'7" Weight 209.00 lb BMI (Body Mass Index) 32.7 kg/m2 [place] Body Weight 135 lb Weight 94.802 kg BSA (Body Surface Area) 2.06 m2 Results Description No Information Available Procedures Description No Information Available Medical Devices Description No Information Available Encounters Description No Information Available Assessments Description No Information Available Plan of Treatment No Information Available Functional Status Description No Information Available Mental Status Description No Information Available Referrals Description No Information Available
[2021-10-15] MEDS ORDERED: LIDOCAINE 2% 100MG/5ML SDV (FOR ANES.) As Ordered ONE (11:46)
[2021-10-15] MEDS ORDERED: propofoL 200 MG/20 ML VIAL As Ordered ONE (11:46)
--- NOTE | 2021-10-15 12:04 | ROOR ---
Patient Name: Shara Solorzano Procedure Date: 10/15/2021 11:41 AM Date of : 1955 Age: 65 Room: [facility] Gender: Female Note Status: Finalized Procedure: Colonoscopy Indications: High risk colon cancer surveillance: Personal history of colonic polyps Providers: Barrett Morris Jr, MD Referring MD: CONCHIS Kwon Requesting Provider: Medicines: Propofol per Anesthesia Complications: No immediate complications. Procedure: Pre-Anesthesia Assessment: - Prior to the procedure, a History and Physical was performed, and patient medications and allergies were reviewed. The patient is competent. The risks and benefits of the procedure and the sedation options and risks were discussed with the patient. All questions were answered and informed consent was obtained. Patient identification and proposed procedure were verified by the physician and the nurse in the pre-procedure area and in the procedure room. Mental Status Examination: alert and oriented. Airway Examination: normal oropharyngeal airway and neck mobility. Respiratory Examination: clear to auscultation. CV Examination: normal. ASA Grade Assessment: II - A patient with mild systemic disease. After reviewing the risks and benefits, the patient was deemed in satisfactory condition to undergo the procedure. The anesthesia plan was to use moderate sedation / analgesia (conscious sedation). Immediately prior to administration of medications, the patient was re-assessed for adequacy to receive sedatives. The heart rate, respiratory rate, oxygen saturations, blood pressure, adequacy of pulmonary ventilation, and response to care were monitored throughout the procedure. The physical status of the patient was re-assessed after the procedure. The Colonoscope was introduced through the anus and advanced to the ileocolonic anastomosis. The colonoscopy was performed without difficulty. The patient tolerated the procedure well. The quality of the bowel preparation was adequate. Findings: The rectum, recto-sigmoid colon, descending colon, transverse colon, ascending colon and anastomosis appeared normal. Multiple small and large-mouthed diverticula were found in the sigmoid colon. External and internal hemorrhoids were found during endoscopy. The hemorrhoids were Grade II (internal hemorrhoids that prolapse but reduce spontaneously) and Grade III (internal hemorrhoids that prolapse but require manual reduction). Impression: - The rectum, recto-sigmoid colon, descending colon, transverse colon, ascending colon and colonic anastomosis are normal. - Diverticulosis in the sigmoid colon. - External and internal hemorrhoids. - No specimens collected. Recommendation: - Discharge patient to home (ambulatory). - Repeat colonoscopy in 5 years for surveillance. Procedure Code(s): --- Professional --- 18352, Colonoscopy, flexible; diagnostic, including collection of specimen(s) by brushing or washing, when performed (separate procedure) Diagnosis Code(s): --- Professional --- Z86.010, Personal history of colonic polyps K64.2, Third degree hemorrhoids K57.30, Diverticulosis of large intestine without perforation or abscess without bleeding CPT copyright 2019 [employer]. All rights reserved. The codes documented in this report are preliminary and upon mortgage broker review may be revised to meet current compliance requirements. Barrett Morris MD Barrett Morris Jr, MD 10/15/2021 12:04:08 PM Electronically signed by Barrett Morris Jr, MD Number of Addenda: 0 Note Initiated On: 10/15/2021 11:41 AM Estimated Blood Loss: Estimated blood loss: none.
[2021-10-15 12:30] VITALS: BP 138/84
== END 2021-10-15 12:45 | disposition home or self-care (01) ==
LOC: M OPP 10:21
PROVIDERS: ATTEND Surgery
DX: Z86.010 Personal history of colon polyps (principal); K64.2 Third degree hemorrhoids; K57.30 Diverticulosis of large intestine without perforation or abscess without bleeding; E03.9 Hypothyroidism, unspecified; E78.5 Hyperlipidemia, unspecified; Z98.51 Tubal ligation status; Z79.899 Other long term (current) drug therapy; Z79.890 Hormone replacement therapy; Z87.891 Personal history of nicotine dependence

== ENCOUNTER → 2024-08-20 | Outpatient (CLI) | payer MEDICARE, OTHER ==
[~2024-08-20] MED LIST changes: -NS 1,000 ML IV ONE
== END ==
LOC: M WUC 15:03
PROVIDERS: ATTEND Nurse Practitioner Adult Health
DX: R06.02 Shortness of breath (principal)

== ENCOUNTER → 2024-11-13 | Outpatient (CLI) | payer MEDICARE, OTHER | LOC: M WHC 08:44 | PROVIDERS: ATTEND Physician Assistant Medical | DX: Z12.31 Encounter for screening mammogram for malignant neoplasm of breast (principal); R92.323 Mammographic fibroglandular density, bilateral breasts ==

== ENCOUNTER → 2025-05-13 | Outpatient (REF) | payer MEDICARE, OTHER ==
[2025-05-13 14:07] LABS: HEPATITIS C VIRUS ABY INDEX 0.10 INDEX (<0.8)
== END ==
LOC: M LAB REF 12:05
PROVIDERS: ATTEND Nurse Practitioner Adult Health
DX: Z01.89 Encounter for other specified special examinations (principal); Z86.19 Personal history of other infectious and parasitic diseases